=== PATIENT | male | born 1955 | race Caucasian/White ===

== ENCOUNTER 2021-05-22 19:54 | Emergency (ER) | payer MEDICARE, SELFPAY ==
[2021-05-22] VITALS (9 sets, daily range): BP systolic 113–157; BP diastolic 71–81; PULSE 72–81; RESP 12–18; TEMP 38.1; O2SAT 94–99; BMI 30.3
--- NOTE | 2021-05-22 20:18 | DI.RAD.S_ITS ---
PROCEDURE: XR CHEST 1V INDICATIONS: chest pain TECHNIQUE: One view of the chest was acquired. COMPARISON: None. FINDINGS: Surgical changes and devices: None. Lungs and pleura: Mild patchy bilateral airspace opacities are seen. Mildly low lung volumes are seen bilaterally. No pleural effusion or pneumothorax. Mediastinum: Mediastinal contours appear normal. Heart size is borderline. Bones and chest wall: No suspicious bony lesions. Overlying soft tissues appear unremarkable. IMPRESSION: Bilateral patchy airspace opacities may represent a viral or atypical pneumonia such as COVID-19 pneumonia versus less likely mild pulmonary edema. Dictated by: Chai Salas M.D. on 05/22/2021 at 20:30 Approved by: Chai Salas M.D. on 05/22/2021 at 20:31
[2021-05-22] MEDS: SODIUM CHLORIDE 0.9% 1,000 ML 1000 ML IV (20:36)
[2021-05-22] MEDS: ONDANSETRON 4 MG/2 ML INJ (20:36)
[2021-05-22 20:39] LABS: Add Manual Diff / Slide Review NO; Basophils Absolute Auto 0 /uL (0-100); Basophils Percent Auto 0.6 % (0-2); Eosinophils Absolute Auto 0 /uL (0-450); Eosinophils Percent Auto 0.2 % (2-4); Hematocrit 38.6 % (41-53); Hemoglobin 12.6 g/dL (13.5-17.5); Lymphocytes Absolute Auto 700 /uL (1100-4500); Lymphocytes Percent Auto 17.8 % (25-40); Mean Corpuscular HGB Conc 32.7 % (30-36); Mean Corpuscular Hemoglobin 27.9 PG (26-34); Mean Corpuscular Volume 85.4 fL (80-100); Monocytes Absolute Auto 400 /uL (0-900); Monocytes Percent Auto 9.3 % (3-14); Neutrophils Absolute Auto 2800 /uL (1500-7000); Neutrophils Percent Auto 72.1 % (50-75); Platelet Count 142 X10^3/uL (150-400); Red Blood Cell Count 4.52 X10^6/uL (4.5-5.9); Red Cell Distribution Width 15.4 % (11.6-14.8); White Blood Cell Count 3.8 X10^3/uL (4.5-11.0)
[2021-05-22 20:54] LABS: Alanine Aminotransferase 24 IU/L (<50); Albumin 4.3 g/dL (3.5-5.0); Albumin Globulin Ratio 1.4 (1.0-2.8); Alkaline Phosphatase 79 U/L (38-126); Aspartate Aminotransferase 33 IU/L (17-59); BUN Creatinine Ratio 15.6 (6-22); Bilirubin Total 0.7 mg/dL (0.2-1.3); Blood Urea Nitrogen 14 mg/dL (9-20); Calcium 8.7 mg/dL (8.4-10.2); Carbon Dioxide 23 mmol/L (22-32); Chloride 103 mmol/L (98-107); Creatine Kinase 105 U/L (55-170); Estimated Glomerular Filt Rate > 60.0 mL/min (>60); Globulin 3.1 g/dL (1.7-4.1); Glucose 100 mg/dL (80-110); HEMOLYSIS < 15 (0-50); Lipase 63 U/L (23-300); Potassium 3.5 mmol/L (3.4-5.1); Sodium 137 mmol/L (137-145); Total Protein 7.4 g/dL (6.3-8.2)
[2021-05-22 21:00] LABS: COVID19 -Nasal RAPID POSITIVE (Negative)
[2021-05-22 21:05] LABS: Troponin I 0.012 ng/mL (0.01-0.034)
[2021-05-22 21:09] LABS: CKMB % Relative Index 0.6 % (1.5-5.0); Creatine Kinase MB 0.64 ng/mL (<2.37)
[2021-05-23] VITALS: BP 133/62; PULSE 79; RESP 14; O2SAT 99
--- NOTE | 2021-05-23 00:16 | ED.GENADULT ---
HPI - General Adult General Chief complaint: Upper Respiratory Symptoms Stated complaint: covid+ not feeling well Time Seen by Provider: 05/22/21 20:04 Source: patient Mode of arrival: Ambulatory Limitations: no limitations History of Present Illness HPI narrative: 65-year-old gentleman presents on day 10 of COVID symptoms with COVID diagnosis confirmed on 05/20. He has multiple medical problems in this last year has been challenging. In addition to his type 2 diabetes, hypertension, hyperlipidemia and anticoagulation for his paroxysmal atrial fibrillation he had a stroke in June, he has had 2 diabetic foot surgeries with toe and partial forefoot amputations, he has had a colonoscopy with complications and 1 month ago had a Cardiac watchman procedure for his paroxysmal atrial fibrillation. He moved from [place] to [place] 1 month ago. Through all of those medical issues last year his doctors continued to recommend no COVID vaccination for him. Ten days ago he started noting fevers myalgias mild cough tested positive 4 days ago and comes in today with increasing weakness, dyspnea, increasing nausea vomiting and unable to keep any foods down over the last 24 hours. He denies any palpitations but is complaining of some chest pain secondary to the coughing that he has been doing some mild upper abdominal pain secondary to the vomiting. Has not been having any diarrhea he describes no headaches. He has been increasingly weak and progressively more dyspneic particularly with exertion. Today finds that he can barely even walk across the room to get to the bathroom due to his dyspnea. Related Data Home Medications Medication Instructions Recorded Confirmed amlodipine 5 mg tablet 5 mg PO DAILY 05/22/21 05/22/21 atorvastatin 40 mg tablet 40 mg PO DAILY 05/22/21 05/22/21 cyclobenzaprine 10 mg tablet 10 mg PO TID PRN 05/22/21 05/22/21 fluticasone propionate 50 2 spray INTRANASAL DAILY 05/22/21 05/22/21 mcg/actuation nasal spray,suspension insulin glargine 100 unit/mL (3 50 unit SUBCUT QPM 05/22/21 05/22/21 mL) subcutaneous pen (Lantus Solostar U-100 Insulin) metoprolol succinate 50 mg 50 mg PO QPM 05/22/21 05/22/21 tablet,extended release 24 hr nortriptyline 25 mg capsule 25 - 50 mg PO BEDTIME 05/22/21 05/22/21 omeprazole 40 mg capsule,delayed 40 mg PO BID 05/22/21 05/22/21 release potassium chloride 20 mEq 20 meq PO DAILY 05/22/21 05/22/21 tablet,extended release rivaroxaban 20 mg tablet (Xarelto) 20 mg PO DAILY 05/22/21 05/22/21 topiramate 25 mg tablet 25 mg PO BID 05/22/21 05/22/21 venlafaxine 75 mg capsule,extended 75 mg PO BID 05/22/21 05/22/21 release 24 hr Allergies Allergy/AdvReac Type Severity Reaction Status Date / Time No Known Drug Allergies Allergy Verified 05/22/21 20:24 Review of Systems Review of Systems Narrative: Remainder of complete review of systems is otherwise unremarkable except for that included in the HPI. Patient History Medical History (Updated 05/23/21 @ 00:36 by Pam Bower MD) COVID-19 Hyperlipidemia Hypertension Paroxysmal atrial fibrillation Partial nontraumatic amputation of foot Stroke Type 2 diabetes mellitus Social History Smoking Status: Never smoker Smoking Status: Never smoker Substance Use Type: does not use Exam Narrative Exam Narrative: General: Mildly ill-appearing but in no acute distress. Able to give a complete and coherent history. Well-nourished well-developed HEENT: Moist mucous membranes, normal sclera with reactive pupils, Neck: No JVD, supple Respiratory: Lungs with mild scattered wheezing in all lung sherman but no rales no rhonchi. Full and symmetrical air movement Cardiac: Regular rate and rhythm no murmurs no bruits Abdomen: Soft, nontender, good bowel tones, no flank pain Skin: Warm and dry, no rashes Neurologic: Globally weak, Grossly neurologically intact with no obvious asymmetries or abnormalities Extremities: No trauma, amputation sites healing nicely, well perfused Psych: Cooperative, appropriate insight and affect Initial Vital Signs Initial Vital Signs: Vital Signs Temperature 100.6 F H 05/22/21 20:12 Pulse Rate 76 05/22/21 20:12 Respiratory Rate 17 05/22/21 20:12 Blood Pressure 157/81 H 05/22/21 20:12 Pulse Oximetry 97 05/22/21 20:12 Course Orders Ordered: ED Orders 05/22/21 20:18 XR chest 1V Stat EKG-12 Lead Stat 05/22/21 20:30 COVID19 -Nasal swab/Pre-Proc Stat Complete Blood Count AUTO DIFF Stat Comprehensive Metabolic Panel Stat Lipase Stat Troponin & CK Cardiac Panel Stat 05/22/21 23:59 D Dimer Stat Discontinued Medications Dexamethasone (Dexamethasone 10 Mg/Ml Vial) 6 mg IV NOW ONE Stop: 05/23/21 00:26 Last Admin: 05/23/21 00:44 Dose: 6 mg Documented by: CONRAD Sodium Chloride (Normal Saline 0.9%) 1,000 mls @ 1,000 mls/hr IV BOLUS ONE Stop: 05/22/21 21:20 Last Infusion: 05/22/21 22:00 Dose: 0 mls/hr Documented by: Admin: 05/22/21 20:36 Dose: 1,000 mls/hr Documented by: CONRAD Insulin Glargine (Insulin Glargine 100 Unit/Ml 3ml Pen) 40 unit SUBCUT BEDTIME WENDY Last Admin: 05/23/21 00:51 Dose: Not Given Documented by: CONRAD Rivaroxaban (Rivaroxaban 10 Mg Tablet) 20 mg PO NOW ONE Stop: 05/23/21 00:26 Last Admin: 05/23/21 00:50 Dose: 20 mg Documented by: CONRAD Vital Signs Vital signs: Vital Signs - 8 hr 05/22/21 20:12 05/22/21 20:29 05/22/21 20:30 Temperature 100.6 F H Pulse Rate 76 72 74 Respiratory Rate 17 Blood Pressure 157/81 H Pulse Oximetry 97 97 97 05/22/21 21:00 05/22/21 21:30 05/22/21 22:00 Temperature Pulse Rate 75 79 73 Respiratory Rate 12 Blood Pressure Pulse Oximetry 94 96 96 05/22/21 22:30 05/22/21 23:00 05/22/21 23:30 Temperature Pulse Rate 76 81 75 Respiratory Rate 18 18 17 Blood Pressure 135/72 113/71 Pulse Oximetry 95 96 99 05/23/21 00:00 05/23/21 00:30 05/23/21 01:00 Temperature Pulse Rate 79 79 81 Respiratory Rate 14 17 15 Blood Pressure 133/62 133/70 111/55 L Pulse Oximetry 99 98 99 05/23/21 01:30 05/23/21 01:31 Temperature Pulse Rate 91 H 89 Respiratory Rate 18 18 Blood Pressure 173/74 H Pulse Oximetry 96 96 Medical Decision Making Lab Data Result diagrams: 05/22/21 20:30 05/22/21 20:30 Labs: Lab Results 05/22/21 05/22/21 05/22/21 Range/Units 20:30 20:30 20:30 WBC 3.8 L (4.5-11.0) X10^3/uL RBC 4.52 (4.5-5.9) X10^6/uL Hgb 12.6 L (13.5-17.5) g/dL Hct 38.6 L (41-53) % MCV 85.4 (80-100) fL MCH 27.9 (26-34) PG MCHC 32.7 (30-36) % RDW 15.4 H (11.6-14.8) % Plt Count 142 L (150-400) X10^3/uL Neut % (Auto) 72.1 (50-75) % Lymph % (Auto) 17.8 L (25-40) % [place] % (Auto) 9.3 (3-14) % Eos % (Auto) 0.2 L (2-4) % Baso % (Auto) 0.6 (0-2) % Neut # (Auto) 2800 (8576-5548) /uL Lymph # (Auto) 700 L (8956-5773) /uL [place] # (Auto) 400 (0-900) /uL Eos # (Auto) 0 (0-450) /uL Baso # (Auto) 0 (0-100) /uL D-Dimer (<230) ng/mL Sodium 137 (137-145) mmol/L Potassium 3.5 (3.4-5.1) mmol/L Chloride 103 (98-107) mmol/L Carbon Dioxide 23 (22-32) mmol/L BUN 14 (9-20) mg/dL Creatinine 0.90 (0.66-1.25) mg/dL Estimated GFR > 60.0 (>60) mL/min BUN/Creatinine Ratio 15.6 (6-22) Glucose 100 (80-110) mg/dL Calcium 8.7 (8.4-10.2) mg/dL Total Bilirubin 0.7 (0.2-1.3) mg/dL AST 33 (17-59) IU/L ALT 24 (<50) IU/L Alkaline Phosphatase 79 (38-126) U/L Total Creatine Kinase 105 (55-170) U/L CK-MB (CK-2) 0.64 (<2.37) ng/mL CK-MB (CK-2) Rel Index 0.6 L (1.5-5.0) % Troponin I 0.012 (0.01-0.034) ng/mL Total Protein 7.4 (6.3-8.2) g/dL Albumin 4.3 (3.5-5.0) g/dL Globulin 3.1 (1.7-4.1) g/dL Albumin/Globulin Ratio 1.4 (1.0-2.8) Lipase 63 (23-300) U/L SARS-CoV-2 (PCR) Positive H (Negative) 05/22/21 Range/Units 23:59 WBC (4.5-11.0) X10^3/uL RBC (4.5-5.9) X10^6/uL Hgb (13.5-17.5) g/dL Hct (41-53) % MCV (80-100) fL MCH (26-34) PG MCHC (30-36) % RDW (11.6-14.8) % Plt Count (150-400) X10^3/uL Neut % (Auto) (50-75) % Lymph % (Auto) (25-40) % [place] % (Auto) (3-14) % Eos % (Auto) (2-4) % Baso % (Auto) (0-2) % Neut # (Auto) (4888-6003) /uL Lymph # (Auto) (8042-9339) /uL [place] # (Auto) (0-900) /uL Eos # (Auto) (0-450) /uL Baso # (Auto) (0-100) /uL D-Dimer 242 H (<230) ng/mL Sodium (137-145) mmol/L Potassium (3.4-5.1) mmol/L Chloride (98-107) mmol/L Carbon Dioxide (22-32) mmol/L BUN (9-20) mg/dL Creatinine (0.66-1.25) mg/dL Estimated GFR (>60) mL/min BUN/Creatinine Ratio (6-22) Glucose (80-110) mg/dL Calcium (8.4-10.2) mg/dL Total Bilirubin (0.2-1.3) mg/dL AST (17-59) IU/L ALT (<50) IU/L Alkaline Phosphatase (38-126) U/L Total Creatine Kinase (55-170) U/L CK-MB (CK-2) (<2.37) ng/mL CK-MB (CK-2) Rel Index (1.5-5.0) % Troponin I (0.01-0.034) ng/mL Total Protein (6.3-8.2) g/dL Albumin (3.5-5.0) g/dL Globulin (1.7-4.1) g/dL Albumin/Globulin Ratio (1.0-2.8) Lipase (23-300) U/L SARS-CoV-2 (PCR) (Negative) Point of Care Testing Glucose POC 74 Point of care testing: Point of Care Testing Glucose POC 74 Imaging Data Chest x-ray: Radiologist's Impression: FINDINGS:? ? Surgical changes and devices:? None.? ? Lungs and pleura:? Mild patchy bilateral airspace opacities are seen.? Mildly low lung volumes are seen bilaterally.? No pleural effusion or pneumothorax. ? Mediastinum:? Mediastinal contours appear normal.? Heart size is borderline.? ? Bones and chest wall:? No suspicious bony lesions.? Overlying soft tissues appear unremarkable.? ? IMPRESSION:? Bilateral patchy airspace opacities may represent a viral or atypical pneumonia such as COVID-19 pneumonia versus less likely mild pulmonary edema. ? ? Dictated by: Chai Salas M.D. on 05/22/2021 at 20:30 ? ? ECG Data Interpretation: Sinus rhythm at a rate of 86 Left axis deviation No acute ischemic changes MDM Narrative Medical decision making narrative: 65-year-old gentleman with multiple medical issues not vaccinated for COVID on day 10 of symptoms with nausea vomiting diarrhea and progressive exertional dyspnea. Sats when resting and taking slow deep breaths can be as high as 97 however getting out of bed standing up and then back into bed his saturations dropped to 85%. He is much more comfortable on 2 L with decreased tachypnea and tachycardia. Given his multiple medical comorbidities worsening symptoms and now oxygen requirements he will benefit from hospitalization. Because of bed shortage is across [facility] closest inpatient bed available is at [facility] in [place]. Spoke with Dr Mccloud, hospitalist at [facility] who accepts the patient. Findings and concerns are reviewed with patient. Currently pending are a D-dimer however he is anticoagulated on Xarelto. He will be given dexamethasone but will weight to begin remdesivir until he gets to his receiving hospital. At this time he is comfortable on 2 L nasal cannula oxygen and safe for transport to [facility] Discharge Plan Departure Patient Disposition: [facility] Clinical Impression: Respiratory failure with hypoxia, Nausea & vomiting Prescriptions: No Action atorvastatin 40 mg Tablet 40 mg PO DAILY 0RF amlodipine 5 mg Tablet 5 mg PO DAILY 0RF cyclobenzaprine 10 mg Tablet 10 mg PO TID PRN (Reason: back spasm) 0RF venlafaxine 75 mg Capsule,Extended Release 24hr 75 mg PO BID 0RF metoprolol succinate 50 mg Tablet Extended Release 24 Hr 50 mg PO QPM 0RF topiramate 25 mg Tablet 25 mg PO BID 0RF omeprazole 40 mg Capsule,Delayed Release(Dr/Ec) 40 mg PO BID 0RF nortriptyline 25 mg Capsule 25 - 50 mg PO BEDTIME 0RF fluticasone propionate 50 mcg/actuation [place],Suspension 2 spray INTRANASAL DAILY 0RF Rx Instructions: administer into each nostril Lantus Solostar U-100 Insulin 100 unit/mL (3 mL) Insulin Pen 50 unit SUBCUT QPM 0RF Xarelto 20 mg Tablet 20 mg PO DAILY 0RF Rx Instructions: must administer with evening meal potassium chloride 20 mEq Tablet Extended Release 20 meq PO DAILY 0RF
[2021-05-23 00:26] LABS: D Dimer 242 ng/mL (<230)
[2021-05-23 00:30] VITALS: BP 133/70; PULSE 79; RESP 17; O2SAT 98
[2021-05-23] MEDS: DEXAMETHASONE 10 MG/ML VIAL 6 MG IV (00:44)
[2021-05-23] MEDS: RIVAROXABAN 10 MG TABLET 20 MG PO (00:50)
[2021-05-23 01:00] VITALS: BP 111/55; PULSE 81; RESP 15; O2SAT 99
[2021-05-23 01:30] VITALS: PULSE 91; RESP 18; O2SAT 96
[2021-05-23 01:31] VITALS: BP 173/74; PULSE 89; RESP 18; O2SAT 96
== END 2021-05-23 01:45 | disposition short-term general hospital (02) ==
PROVIDERS: Emergency Provider Emergency Medicine
DX: U07.1 COVID-19 (principal); J96.91 Respiratory failure, unspecified with hypoxia; R11.2 Nausea with vomiting, unspecified; E11.9 Type 2 diabetes mellitus without complications; I10 Essential (primary) hypertension; E78.5 Hyperlipidemia, unspecified; I48.0 Paroxysmal atrial fibrillation; Z79.01 Long term (current) use of anticoagulants; Z79.4 Long term (current) use of insulin
CPT/HCPCS: 36415; 71045; 80053; 82550; 82553; 82962; 83690; 84484; 85025; 85379; 87635; 93005; 96361; 96374; 96375; 99284; 99285; C9803; J1100; J2405

== ENCOUNTER 2021-07-15 15:24 | Observation (INO) | payer MEDICARE, SELFPAY ==
[2021-07-15] VITALS (7 sets, daily range): BP systolic 127–180; BP diastolic 58–95; PULSE 67–97; RESP 15–20; TEMP 36.6–36.7; O2SAT 97–98; BMI 30.3
--- NOTE | 2021-07-15 15:36 | DI.RAD.S_ITS ---
PROCEDURE: XR CHEST 2V INDICATIONS: shortness of breath TECHNIQUE: 2 views of the chest were acquired. COMPARISON: [facility], , XR CHEST 1V, 05/22/2021, 20:19. FINDINGS: Surgical changes and devices: None. Lungs and pleura: Lungs are clear. No pleural effusions or pneumothorax. Mediastinum: Mediastinal contours are normal. Heart size is normal. Bones and chest wall: No suspicious bony abnormalities. Soft tissues appear unremarkable. IMPRESSION: No acute cardiopulmonary disease process. Dictated by: Kylie Mulligan MD, PhD on 07/15/2021 at 16:13 Approved by: Kylie Mulligan MD, PhD on 07/15/2021 at 16:29
--- NOTE | 2021-07-15 15:36 | ED_ITS ---
HPI - Allergic Reaction General Chief complaint: Shortness of Breath/Dyspnea Stated complaint: sent by MD for heart issues Time Seen by Provider: 07/15/21 15:32 Source: patient and RN notes reviewed Mode of arrival: Ambulatory Limitations: no limitations History of Present Illness HPI narrative: This is a 65-year-old male who comes emergency department complaint of chest pain that is been going on for 24 hours he states it is intermittent, will have and heaviness in his chest and feels short of breath. It is substernal it does not radiate. He states that sometimes with exertion but sometimes with sitting. He gets sweaty. He actually states he has been feeling short of breath for about 24 hours. [place] a little bit chilled but no fevers. No cold, cough or congestion. No nausea or vomiting. He has felt a little bit lightheaded in for the past couple hours. No syncope. He has had bilateral swelling in his lower extremities for least several days. He has not had this prior. Patient notes that he has medical problems he does not know what they all are he does have diabetic and is on insulin. 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 Had a Watchman placed in [place] on March 01. Patient states he used to see a form building supervisor in your but does not established locally. He saw his primary care [facility] today who told him to come to the ER. He states he was following up his he is about to run out of his medications. No known drug allergies. No tobacco, alcohol or illicit. He states his blood pressures have been high but he does not know the numbers his keeps track of this. She is not present. Related Data Home Medications Medication Instructions Recorded Confirmed amlodipine 5 mg tablet 5 mg PO DAILY 05/22/21 07/15/21 atorvastatin 40 mg tablet 40 mg PO DAILY 05/22/21 07/15/21 cyclobenzaprine 10 mg tablet 10 mg PO TID PRN 05/22/21 07/15/21 insulin glargine 100 unit/mL (3 50 unit SUBCUT QPM 05/22/21 07/15/21 mL) subcutaneous pen (Lantus Solostar U-100 Insulin) metoprolol succinate 50 mg 50 mg PO QPM 05/22/21 07/15/21 tablet,extended release 24 hr nortriptyline 25 mg capsule 25 - 50 mg PO BEDTIME 05/22/21 07/15/21 omeprazole 40 mg capsule,delayed 40 mg PO BID 05/22/21 07/15/21 release potassium chloride 20 mEq 20 meq PO DAILY 05/22/21 07/15/21 tablet,extended release rivaroxaban 20 mg tablet (Xarelto) 20 mg PO DAILY 05/22/21 07/15/21 topiramate 25 mg tablet 25 mg PO BID 05/22/21 07/15/21 venlafaxine 75 mg capsule,extended 75 mg PO BID 05/22/21 07/15/21 release 24 hr Allergies Allergy/AdvReac Type Severity Reaction Status Date / Time No Known Drug Allergies Allergy Verified 07/15/21 15:37 Review of Systems Review of Systems ROS Unobtainable: All systems reviewed & are unremarkable except as noted in HPI and below Patient History Medical History COVID-19 Hyperlipidemia Hypertension Paroxysmal atrial fibrillation Partial nontraumatic amputation of foot Stroke Type 2 diabetes mellitus Surgical History H/O right inguinal hernia repair H/O shoulder surgery Hx of colonoscopy Presence of Watchman left atrial appendage closure device Family History Sister Heart failure Mother Blood clot in vein Father Myocardial infarction Social History household members: spouse and children Smoking Status: Never smoker alcohol intake: never Smoking Status: Never smoker Substance Use Type: does not use Exam Narrative Exam Narrative: GENERAL: Alert and oriented x three, male in mild distress. HEENT: Head normocephalic, atraumatic, EOMI, pupils reactive, face symmetric, moist mucous membranes, no facial droop. NECK: Supple, full range of motion CARDIOVASCULAR: Regular rate and rhythm without murmurs, rubs or gallops. RESPIRATORY: Breath sounds equal bilaterally, no wheezes rales or rhonchi. ABDOMEN: Soft, nontender. Normoactive bowel sounds all 4 quadrants. No guarding or rebound, rigidity, no mass, nondistended. : No CVA tenderness EXTREMITIES: Normal range of motion. Bilateral lower extremity 2+ pitting edema. NEUROLOGICAL: Cranial nerves II through XII grossly intact. Moving all extremities SKIN: Warm, dry, no petechiae, no rashes or lesions. Initial Vital Signs Initial Vital Signs: Vital Signs Temperature 98.1 F 07/15/21 15:37 Pulse Rate 67 07/15/21 15:37 Respiratory Rate 15 07/15/21 15:37 Blood Pressure 180/92 H 07/15/21 15:37 Pulse Oximetry 98 07/15/21 15:37 Scores HEART Score Heart Score history: Moderately Suspicious Heart Score EKG: Non-Specific repolarization disturbance Heart Score Age: > or = 65 years old Heart Score risk factors: > 3 risk factors or hx of atherosclerotic disease Heart Score troponin: < or = to normal limit Heart Score Total: 6 Course Orders Ordered: Acetaminophen (Acetaminophen 325 Mg Tablet) 650 mg PO Q6HR PRN PRN Reason: Fever/Mild Pain (1-3) Amlodipine Besylate (Amlodipine 5 Mg Tablet) 5 mg PO DAILY WENDY Atorvastatin Calcium (Atorvastatin 20 Mg Tablet) 40 mg PO BEDTIME [facility] Last Admin: 07/15/21 22:18 Dose: 40 mg Documented by: MARY Dextrose (Dextrose 50 % In Water 25 Gm/50 Ml Syringe) 25 gm IV PRN PRN PRN Reason: Hypoglycemia Influenza Virus Vaccine (Influenza Hd Vaccine 0.7 Ml Syringe) 0.7 ml IM .ONCE ONE Stop: 07/16/21 08:01 Insulin Glargine (Insulin Glargine 100 Unit/Ml 3ml Pen) 50 unit SUBCUT QPM [facility] Insulin Human Lispro (Insulin Lispro 100 Unit/Ml 3ml Vial) 0 unit SUBCUT ACHS [facility]; Protocol Morphine Sulfate (Morphine 2 Mg/Ml Inj) 2 mg IV Q5MIN PRN PRN Reason: Chest Pain Last Admin: 07/16/21 00:22 Dose: 2 mg Documented by: Admin: 07/15/21 23:50 Dose: 2 mg Documented by: Admin: 07/15/21 23:25 Dose: 2 mg Documented by: Admin: 07/15/21 22:19 Dose: 2 mg Documented by: MARY Morphine Sulfate (Morphine 2 Mg/Ml Inj) 4 mg IV Q4HR PRN PRN Reason: Pain, Moderate (4-6) Last Admin: 07/16/21 01:42 Dose: 4 mg Documented by: MARY Naloxone HCl (Naloxone 0.4 Mg/Ml Vial) 0.2 mg IV Q2MIN PRN PRN Reason: Opiate Reversal Nitroglycerin (Nitroglycerin 0.4 Mg Sl Tab) 0.4 mg SL [id number] PRN PRN Reason: Chest Pain Last Admin: 07/16/21 00:56 Dose: 0.4 mg Documented by: Admin: 07/16/21 00:42 Dose: 0.4 mg Documented by: MARY Ondansetron HCl (Ondansetron 4 Mg/2 Ml Inj) 4 mg IV Q8HR PRN PRN Reason: Nausea And Vomiting Rivaroxaban (Rivaroxaban 10 Mg Tablet) 20 mg PO DAILY [facility] Last Admin: 07/15/21 22:18 Dose: 20 mg Documented by: MARY Topiramate (Topiramate 25 Mg Tablet) 25 mg PO BID [facility] Last Admin: 07/15/21 22:19 Dose: 25 mg Documented by: MARY Venlafaxine HCl (Venlafaxine Er 75 Mg Cap) 75 mg PO BID [facility] Last Admin: 07/15/21 22:18 Dose: 75 mg Documented by: MARY Discontinued Medications Aspirin (Aspirin 81 Mg Chew Tab) 324 mg PO NOW ONE Stop: 07/15/21 17:00 Last Admin: 07/15/21 17:21 Dose: 324 mg Documented by: GOLDY Furosemide (Furosemide 40 Mg/4 Ml Vial) 40 mg IV NOW ONE Stop: 07/15/21 15:56 Last Admin: 07/15/21 16:07 Dose: 40 mg Documented by: INES Magnesium Sulfate (Magnesium Sulfate) 2 gm in 50 mls @ 25 mls/hr IV NOW ONE Stop: 07/16/21 02:44 Last Infusion: 07/16/21 06:43 Dose: 0 mls/hr Documented by: MARY Cosigned by: MADINA Admin: 07/16/21 01:01 Dose: 25 mls/hr Documented by: MARY Cosigned by: MADINA Morphine Sulfate (Morphine 2 Mg/Ml Inj) 2 mg IV Q4HR PRN PRN Reason: Pain, Moderate (4-6) Nitroglycerin (Nitroglycerin 0.4 Mg Sl Tab) 0.4 mg SL [id number] PRN PRN Reason: Chest Pain Last Admin: 07/15/21 18:31 Dose: 0.4 mg Documented by: Admin: 07/15/21 18:26 Dose: 0.4 mg Documented by: Admin: 07/15/21 18:19 Dose: 0.4 mg Documented by: SOL Pantoprazole Sodium (Pantoprazole Dr 40 Mg Tablet) 40 mg PO BIDAC WENDY Pantoprazole Sodium (Pantoprazole Dr 20 Mg Tablet) 10 mg PO 0600 WENDY Potassium Chloride (Potassium Chloride 20 Meq Tab) 40 meq PO NOW ONE Stop: 07/15/21 16:59 Last Admin: 07/15/21 17:21 Dose: 40 meq Documented by: GOLDY Potassium Chloride (Potassium Chloride 20 Meq Tab) 40 meq PO NOW ONE Stop: 07/15/21 21:04 Last Admin: 07/15/21 22:18 Dose: 40 meq Documented by: MARY Consultations Consultation #1: Dr. Pichardo, hospitalist accepts for observation for chest pain. Vital Signs Vital signs: Vital Signs - 8 hr 07/15/21 15:37 07/15/21 18:19 07/15/21 18:26 Temperature 98.1 F Pulse Rate 67 78 81 Respiratory Rate 15 Blood Pressure 180/92 H 167/95 H 136/63 Pulse Oximetry 98 MDM - Allergic Reaction Lab Data Result diagrams: 07/16/21 05:28 07/16/21 05:28 Labs: Lab Results 07/15/21 07/15/21 07/15/21 Range/Units 15:37 15:37 15:37 WBC 7.1 (4.5-11.0) X10^3/uL RBC 4.48 L (4.5-5.9) X10^6/uL Hgb 12.6 L (13.5-17.5) g/dL Hct 38.2 L (41-53) % MCV 85.2 (80-100) fL MCH 28.1 (26-34) PG MCHC 33.0 (30-36) % RDW 16.1 H (11.6-14.8) % Plt Count 236 (150-400) X10^3/uL Neut % (Auto) 68.1 (50-75) % Lymph % (Auto) 19.6 L (25-40) % [place] % (Auto) 9.6 (3-14) % Eos % (Auto) 1.8 L (2-4) % Baso % (Auto) 0.9 (0-2) % Neut # (Auto) 4800 (0068-1026) /uL Lymph # (Auto) 1400 (0698-2469) /uL [place] # (Auto) 700 (0-900) /uL Eos # (Auto) 100 (0-450) /uL Baso # (Auto) 100 (0-100) /uL PT 11.8 (10.1-12.7) SECONDS INR 1.1 (0.9-1.3) APTT (26.4-36.2) SECONDS D-Dimer (<230) ng/mL Sodium 143 (137-145) mmol/L Potassium 3.1 L (3.4-5.1) mmol/L Chloride 104 (98-107) mmol/L Carbon Dioxide 28 (22-32) mmol/L BUN 18 (9-20) mg/dL Creatinine 0.84 (0.66-1.25) mg/dL Estimated GFR > 60.0 (>60) mL/min BUN/Creatinine Ratio 21.4 (6-22) Glucose 92 (80-110) mg/dL Hemoglobin A1c (4.0-6.0) % Lactate (0.7-2.1) mmol/L Calcium 9.2 (8.4-10.2) mg/dL Magnesium (1.6-2.3) mg/dL Total Bilirubin 0.7 (0.2-1.3) mg/dL AST 33 (17-59) IU/L ALT 30 (<50) IU/L Alkaline Phosphatase 74 (38-126) U/L Total Creatine Kinase (55-170) U/L CK-MB (CK-2) (<2.37) ng/mL CK-MB (CK-2) Rel Index (1.5-5.0) % Troponin I (0.01-0.034) ng/mL NT-Pro-B Natriuret Pep 89 (<125) pg/mL Total Protein 7.9 (6.3-8.2) g/dL Albumin 4.9 (3.5-5.0) g/dL Globulin 3.0 (1.7-4.1) g/dL Albumin/Globulin Ratio 1.6 (1.0-2.8) Lipase (23-300) U/L SARS-CoV-2 (PCR) (Negative) 07/15/21 07/15/21 07/15/21 Range/Units 15:37 15:37 15:37 WBC (4.5-11.0) X10^3/uL RBC (4.5-5.9) X10^6/uL Hgb (13.5-17.5) g/dL Hct (41-53) % MCV (80-100) fL MCH (26-34) PG MCHC (30-36) % RDW (11.6-14.8) % Plt Count (150-400) X10^3/uL Neut % (Auto) (50-75) % Lymph % (Auto) (25-40) % [place] % (Auto) (3-14) % Eos % (Auto) (2-4) % Baso % (Auto) (0-2) % Neut # (Auto) (6055-5102) /uL Lymph # (Auto) (2734-4480) /uL [place] # (Auto) (0-900) /uL Eos # (Auto) (0-450) /uL Baso # (Auto) (0-100) /uL PT (10.1-12.7) SECONDS INR (0.9-1.3) APTT (26.4-36.2) SECONDS D-Dimer (<230) ng/mL Sodium (137-145) mmol/L Potassium (3.4-5.1) mmol/L Chloride (98-107) mmol/L Carbon Dioxide (22-32) mmol/L BUN (9-20) mg/dL Creatinine (0.66-1.25) mg/dL Estimated GFR (>60) mL/min BUN/Creatinine Ratio (6-22) Glucose (80-110) mg/dL Hemoglobin A1c (4.0-6.0) % Lactate 0.9 (0.7-2.1) mmol/L Calcium (8.4-10.2) mg/dL Magnesium (1.6-2.3) mg/dL Total Bilirubin (0.2-1.3) mg/dL AST (17-59) IU/L ALT (<50) IU/L Alkaline Phosphatase (38-126) U/L Total Creatine Kinase 155 (55-170) U/L CK-MB (CK-2) 1.60 (<2.37) ng/mL CK-MB (CK-2) Rel Index 1.0 L (1.5-5.0) % Troponin I < 0.012 (0.01-0.034) ng/mL NT-Pro-B Natriuret Pep (<125) pg/mL Total Protein (6.3-8.2) g/dL Albumin (3.5-5.0) g/dL Globulin (1.7-4.1) g/dL Albumin/Globulin Ratio (1.0-2.8) Lipase 59 (23-300) U/L SARS-CoV-2 (PCR) (Negative) 07/15/21 07/15/21 07/15/21 Range/Units 15:37 15:53 16:06 WBC (4.5-11.0) X10^3/uL RBC (4.5-5.9) X10^6/uL Hgb (13.5-17.5) g/dL Hct (41-53) % MCV (80-100) fL MCH (26-34) PG MCHC (30-36) % RDW (11.6-14.8) % Plt Count (150-400) X10^3/uL Neut % (Auto) (50-75) % Lymph % (Auto) (25-40) % [place] % (Auto) (3-14) % Eos % (Auto) (2-4) % Baso % (Auto) (0-2) % Neut # (Auto) (6312-3403) /uL Lymph # (Auto) (5981-6455) /uL [place] # (Auto) (0-900) /uL Eos # (Auto) (0-450) /uL Baso # (Auto) (0-100) /uL PT (10.1-12.7) SECONDS INR (0.9-1.3) APTT 35 (26.4-36.2) SECONDS D-Dimer 226 (<230) ng/mL Sodium (137-145) mmol/L Potassium (3.4-5.1) mmol/L Chloride (98-107) mmol/L Carbon Dioxide (22-32) mmol/L BUN (9-20) mg/dL Creatinine (0.66-1.25) mg/dL Estimated GFR (>60) mL/min BUN/Creatinine Ratio (6-22) Glucose (80-110) mg/dL Hemoglobin A1c 8.3 H (4.0-6.0) % Lactate (0.7-2.1) mmol/L Calcium (8.4-10.2) mg/dL Magnesium (1.6-2.3) mg/dL Total Bilirubin (0.2-1.3) mg/dL AST (17-59) IU/L ALT (<50) IU/L Alkaline Phosphatase (38-126) U/L Total Creatine Kinase (55-170) U/L CK-MB (CK-2) (<2.37) ng/mL CK-MB (CK-2) Rel Index (1.5-5.0) % Troponin I (0.01-0.034) ng/mL NT-Pro-B Natriuret Pep (<125) pg/mL Total Protein (6.3-8.2) g/dL Albumin (3.5-5.0) g/dL Globulin (1.7-4.1) g/dL Albumin/Globulin Ratio (1.0-2.8) Lipase (23-300) U/L SARS-CoV-2 (PCR) Negative (Negative) 07/15/21 07/15/21 Range/Units 17:29 17:29 WBC (4.5-11.0) X10^3/uL RBC (4.5-5.9) X10^6/uL Hgb (13.5-17.5) g/dL Hct (41-53) % MCV (80-100) fL MCH (26-34) PG MCHC (30-36) % RDW (11.6-14.8) % Plt Count (150-400) X10^3/uL Neut % (Auto) (50-75) % Lymph % (Auto) (25-40) % [place] % (Auto) (3-14) % Eos % (Auto) (2-4) % Baso % (Auto) (0-2) % Neut # (Auto) (3782-0218) /uL Lymph # (Auto) (3179-8625) /uL [place] # (Auto) (0-900) /uL Eos # (Auto) (0-450) /uL Baso # (Auto) (0-100) /uL PT (10.1-12.7) SECONDS INR (0.9-1.3) APTT (26.4-36.2) SECONDS D-Dimer (<230) ng/mL Sodium (137-145) mmol/L Potassium (3.4-5.1) mmol/L Chloride (98-107) mmol/L Carbon Dioxide (22-32) mmol/L BUN (9-20) mg/dL Creatinine (0.66-1.25) mg/dL Estimated GFR (>60) mL/min BUN/Creatinine Ratio (6-22) Glucose (80-110) mg/dL Hemoglobin A1c (4.0-6.0) % Lactate (0.7-2.1) mmol/L Calcium (8.4-10.2) mg/dL Magnesium 1.5 L (1.6-2.3) mg/dL Total Bilirubin (0.2-1.3) mg/dL AST (17-59) IU/L ALT (<50) IU/L Alkaline Phosphatase (38-126) U/L Total Creatine Kinase (55-170) U/L CK-MB (CK-2) (<2.37) ng/mL CK-MB (CK-2) Rel Index (1.5-5.0) % Troponin I 0.014 (0.01-0.034) ng/mL NT-Pro-B Natriuret Pep (<125) pg/mL Total Protein (6.3-8.2) g/dL Albumin (3.5-5.0) g/dL Globulin (1.7-4.1) g/dL Albumin/Globulin Ratio (1.0-2.8) Lipase (23-300) U/L SARS-CoV-2 (PCR) (Negative) Imaging Data Chest x-ray: Radiologist's Impression: Close Chest X-Ray (Signed) Kylie Mulligan - 07/15/21 Chest X-Ray (Signed) Chai Salas - 05/22/[address] [address] XRay Report Signed Patient: Edis Bonilla MR#: [id number] : 1955 Acct:[id number] Age/Sex: 65 / M Date of Service: 07/15/21 Loc: ED Accession Number: [id number] ?? Procedure: XR chest 2V Ordering Provider: Nina Win D.O. PROCEDURE:? XR CHEST 2V ? INDICATIONS:? shortness of breath ? TECHNIQUE:? 2 views of the chest were acquired.? ? COMPARISON:? [facility], , XR CHEST 1V, 05/22/2021, 20:19. ? FINDINGS:? ? Surgical changes and devices:? None.? ? Lungs and pleura:? Lungs are clear.? No pleural effusions or pneumothorax.? ? Mediastinum:? Mediastinal contours are normal.? Heart size is normal.? ? Bones and chest wall:? No suspicious bony abnormalities.? Soft tissues appear unremarkable.? ? IMPRESSION:? No acute cardiopulmonary disease process. ? ? Dictated by: Kylie Mulligan MD, PhD on 07/15/2021 at 16:13 ? ? Approved by: Kylie Mulligan MD, PhD on 07/15/2021 at 16:29? ECG Data Attestation: I personally reviewed and interpreted this ECG as follows: Prior ECG tracings: available for review Interpretation: Sinus rhythm rate of 69, UT 158, QRS of 98 QTC 447. LAFB. Nonspecific change. Patient has prior from 05/22/2021 which appears similar. EKG 2. Sinus rhythm with premature atrial complexes. Left axis deviation. Rate of 74 UT 150 QRS of 100 and QTC 474. No acute ST elevation patient's EKG has nonspecific change. [facility] Narrative Medical decision making narrative: This is a 65-year-old male sent to the emergency department for chest pain for the past 24 hours. Patient's initial EKG shows nonspecific change, troponin is negative this was repeated with no acute dynamic changes. Troponin is technically still negative but had a mild increase from 0.012-0.014. Patient had some improvement chest pain with nitro but it is intermittent. His chest x- ray does not show acute changes, he clinically describes fluid overload although his BNP is not elevated, patient's D-dimer was included as he had recent hospitalization at [facility] in May for COVID. This is also negative in my suspicion with hypertension, bradycardia and not requiring any oxygen here in the department is unlikely and CT angio was not performed. Patient does not have any other clear cause for his symptoms. Discussed with hospitalist would like he patient observation for chest pain with plan for stress testing of the following days he has multiple risk factors. Patient is a somewhat poor historian as able to give clear information but appears he is taking Xarelto daily as well as insulin for diabetes, hypertension and dyslipidemia and he notes he had a Watchman placed for atrial fibrillation in January in [facility]. Discharge Plan Departure Patient Disposition: Admitted as Observation Clinical Impression: Chest pain Admit Date/Time: 07/15/21 18:54 Admit Provider: Josie Pichardo
[2021-07-15 15:43] LABS: Add Manual Diff / Slide Review NO; Basophils Absolute Auto 100 /uL (0-100); Basophils Percent Auto 0.9 % (0-2); Eosinophils Absolute Auto 100 /uL (0-450); Eosinophils Percent Auto 1.8 % (2-4); Hematocrit 38.2 % (41-53); Hemoglobin 12.6 g/dL (13.5-17.5); Lymphocytes Absolute Auto 1400 /uL (1100-4500); Lymphocytes Percent Auto 19.6 % (25-40); Mean Corpuscular Hemoglobin 28.1 PG (26-34); Mean Corpuscular Volume 85.2 fL (80-100); Monocytes Absolute Auto 700 /uL (0-900); Monocytes Percent Auto 9.6 % (3-14); Neutrophils Absolute Auto 4800 /uL (1500-7000); Neutrophils Percent Auto 68.1 % (50-75); Platelet Count 236 X10^3/uL (150-400); Red Blood Cell Count 4.48 X10^6/uL (4.5-5.9); Red Cell Distribution Width 16.1 % (11.6-14.8); White Blood Cell Count 7.1 X10^3/uL (4.5-11.0)
[2021-07-15 15:50] LABS: INR 1.1 (0.9-1.3); Prothrombin Time 11.8 SECONDS (10.1-12.7)
[2021-07-15 15:54] LABS: Lactate (Lactic Acid) 0.9 mmol/L (0.7-2.1)
[2021-07-15 15:55] LABS: Alanine Aminotransferase 30 IU/L (<50); Albumin 4.9 g/dL (3.5-5.0); Albumin Globulin Ratio 1.6 (1.0-2.8); Alkaline Phosphatase 74 U/L (38-126); Aspartate Aminotransferase 33 IU/L (17-59); BUN Creatinine Ratio 21.4 (6-22); Bilirubin Total 0.7 mg/dL (0.2-1.3); Blood Urea Nitrogen 18 mg/dL (9-20); Calcium 9.2 mg/dL (8.4-10.2); Carbon Dioxide 28 mmol/L (22-32); Chloride 104 mmol/L (98-107); Estimated Glomerular Filt Rate > 60.0 mL/min (>60); Glucose 92 mg/dL (80-110); HEMOLYSIS < 15 (0-50); Potassium 3.1 mmol/L (3.4-5.1); Sodium 143 mmol/L (137-145); Total Protein 7.9 g/dL (6.3-8.2)
[2021-07-15 16:04] LABS: NT-proBNP (BNP-Adult 18+) 89 pg/mL (<125)
[2021-07-15] MEDS: FUROSEMIDE 40 MG/4 ML VIAL IV (16:07)
[2021-07-15 16:11] LABS: D Dimer 226 ng/mL (<230); PTT Partial Thromboplastin Tim 35 SECONDS (26.4-36.2)
[2021-07-15 16:23] LABS: Creatine Kinase 155 U/L (55-170)
[2021-07-15 16:36] LABS: Troponin I < 0.012 ng/mL (0.01-0.034)
[2021-07-15 16:50] LABS: Lipase 59 U/L (23-300)
[2021-07-15] MEDS: ASPIRIN 81 MG CHEW TAB 324 MG PO (17:21)
[2021-07-15] MEDS: POTASSIUM CHLORIDE 20 MEQ TAB 40 MEQ PO ×2 (17:21→22:18)
[2021-07-15 17:28] LABS: COVID19 -Nasal RAPID Negative (Negative)
[2021-07-15 18:03] LABS: Troponin I 0.014 ng/mL (0.01-0.034)
[2021-07-15] MEDS: NITROGLYCERIN 0.4 MG SL TAB SL ×3 (18:19→18:31)
--- NOTE | 2021-07-15 18:34 | PC.NURSE ---
Pt initially told me his pain was a 5/10. Then he told me just prior to giving him the first dose of ntg that it was probably a 6/10. Pt received 3 doses sl ntg,pain went from 6/10 to a 4/10,he is feeling better. bp 127/58 HR 86.
--- NOTE | 2021-07-15 20:59 | P.HP_ITS ---
History of Present Illness History of Present Illness Date Patient Seen: 07/15/21 Time Patient Seen: 20:59 Chief complaint: sent by MD for heart issues Narrative: Edis Bonilla is a 65 y.o. male with a recent history of Watchman placement, anticoagulated on Xarelto, hypertension, hyperlipidemia, atrial fibrillation currently anticoagulated with Xarelto and placement of a Watchman, COVID-19 diagnosed in May now resolved, diabetes type 2, and multiple orthopedic surgeries done in 2020 prior to relocating to this area from [facility], was seen at [facility]'s office with complaints of chest pain that started about 24 hours ago. He states that she sent her over to the emergency department because of his blood pressure. He had sensations of gas pains that were is worse overnight and then he went to his new PCP. Patient does endorse h aving significant cramping of his left leg and foot as well as his hand, he did have arms sweats and chills, shortness of breath particularly worse with walking 4 mi yesterday, he denies nausea and vomiting, he does say that he was not urinating until they gave him Lasix and then he urinated about 2 urine all bottles full of urine and feels that the swelling that he had yesterday has gone down significantly in his legs. He has had partial amputations of both feet and stated that both his feet as well as his lower legs were quite swollen. He denies any diarrhea he states that his stool is very firm which is normal for him. He also complains of abdominal cramping on the right side. Patient states he had COVID-19 in May and was transferred to [facility]. The he was not vaccinated and still has not been vaccinated as he was advised that he needed to wait a couple months before getting the vaccine. In the emergency department they requested that he be admitted for further evaluation of chest pain. Chest x-ray was within normal limits. He is afebrile with a temp of 98.1?, blood pressure 127/58, heart rate 84, respiratory rate 15, oxygen saturation 98% on room air he weighs 104 kg with a BMI of 30.3. Of concern was a slightly rising troponin, the 1st two being 0.012 and the 3rd troponin being 0.014. He is mildly anemic with a hemoglobin and hematocrit at 12.6 and 38.2, respectively. Potassium was 3.1. Patient History Medical History COVID-19 Hyperlipidemia Hypertension Paroxysmal atrial fibrillation Partial nontraumatic amputation of foot Stroke Type 2 diabetes mellitus Surgical History H/O right inguinal hernia repair H/O shoulder surgery Hx of colonoscopy Presence of Watchman left atrial appendage closure device Family & Social History Family History Sister Heart failure Mother Blood clot in vein Father Myocardial infarction Social History: household members spouse,children Prior Living Arrangements House Safety & Behavioral: Feels Safe in Current Yes Environment Been Physically Hurt or No Threatened By a Person Suicidal Ideation Description None Suicide Plan Description No Plan Tobacco & Substance use: Smoking Status Never smoker alcohol intake never Substance Use Type does not use Meds Home Medications and Allergies Home Medications Medication Instructions Recorded Confirmed Type amlodipine 5 mg tablet 5 mg PO DAILY 05/22/21 07/15/21 History atorvastatin 40 mg tablet 40 mg PO DAILY 05/22/21 07/15/21 History cyclobenzaprine 10 mg tablet 10 mg PO TID PRN 05/22/21 07/15/21 History insulin glargine 100 unit/mL (3 50 unit SUBCUT QPM 05/22/21 07/15/21 History mL) subcutaneous pen (Lantus Solostar U-100 Insulin) metoprolol succinate 50 mg 50 mg PO QPM 05/22/21 07/15/21 History tablet,extended release 24 hr nortriptyline 25 mg capsule 25 - 50 mg PO BEDTIME 05/22/21 07/15/21 History omeprazole 40 mg capsule,delayed 40 mg PO BID 05/22/21 07/15/21 History release potassium chloride 20 mEq 20 meq PO DAILY 05/22/21 07/15/21 History tablet,extended release rivaroxaban 20 mg tablet (Xarelto) 20 mg PO DAILY 05/22/21 07/15/21 History topiramate 25 mg tablet 25 mg PO BID 05/22/21 07/15/21 History venlafaxine 75 mg capsule,extended 75 mg PO BID 05/22/21 07/15/21 History release 24 hr Allergies Allergy/AdvReac Type Severity Reaction Status Date / Time No Known Drug Allergies Allergy Verified 07/15/21 15:37 Review of Systems Review of Systems ROS: Yes All systems reviewed with the patient and are negative except as otherwise documented Exam Vital Signs (past 8 hours): - 07/15/21 15:37 07/15/21 18:19 07/15/21 18:26 Temperature 98.1 F Pulse Rate 67 78 81 Respiratory Rate 15 Blood Pressure 180/92 H 167/95 H 136/63 Pulse Oximetry 98 07/15/21 18:31 Temperature Pulse Rate 84 Respiratory Rate Blood Pressure 127/58 L Pulse Oximetry Oxygen Delivery Method Room Air Narrative Exam Narrative: Gen: Alert, oriented, well-developed 65 y.o. male, NAD HEENT: normocephalic, atraumatic, conjunctiva clear, sclera non-icteric, oral mucosa pink and moist Neck: supple, full ROM, no JVD, trachea is midline Resp: Lungs CTA, non-labored breathing CV: RRR, no murmur or rubs Abd: soft, non-tender, normoactive BTs Skin: no lesions or rashes, dry and intact Neuro: Alert and oriented X 4 w/no focal deficits. Speech clear and coherent. Extremities: Bilateral above the toe amputations, moves all 4 extremities, is ambulatory, has calf tenderness in left leg Psyche: normal mood and affect. Objective Labs Result Diagrams: 07/15/21 15:37 07/15/21 15:37 Labs: Laboratory Results - last 24 hr 07/15/21 07/15/21 07/15/21 15:37 15:37 15:37 WBC 7.1 RBC 4.48 L Hgb 12.6 L Hct 38.2 L MCV 85.2 MCH 28.1 MCHC 33.0 RDW 16.1 H Plt Count 236 Neut % (Auto) 68.1 Lymph % (Auto) 19.6 L [place] % (Auto) 9.6 Eos % (Auto) 1.8 L Baso % (Auto) 0.9 Neut # (Auto) 4800 Lymph # (Auto) 1400 [place] # (Auto) 700 Eos # (Auto) 100 Baso # (Auto) 100 PT 11.8 INR 1.1 APTT D-Dimer Sodium 143 Potassium 3.1 L Chloride 104 Carbon Dioxide 28 BUN 18 Creatinine 0.84 Estimated GFR > 60.0 BUN/Creatinine Ratio 21.4 Glucose 92 Lactate Calcium 9.2 Total Bilirubin 0.7 AST 33 ALT 30 Alkaline Phosphatase 74 Total Creatine Kinase CK-MB (CK-2) CK-MB (CK-2) Rel Index Troponin I NT-Pro-B Natriuret Pep 89 Total Protein 7.9 Albumin 4.9 Globulin 3.0 Albumin/Globulin Ratio 1.6 Lipase SARS-CoV-2 (PCR) 07/15/21 07/15/21 07/15/21 15:37 15:37 15:37 WBC RBC Hgb Hct MCV MCH MCHC RDW Plt Count Neut % (Auto) Lymph % (Auto) [place] % (Auto) Eos % (Auto) Baso % (Auto) Neut # (Auto) Lymph # (Auto) [place] # (Auto) Eos # (Auto) Baso # (Auto) PT INR APTT D-Dimer Sodium Potassium Chloride Carbon Dioxide BUN Creatinine Estimated GFR BUN/Creatinine Ratio Glucose Lactate 0.9 Calcium Total Bilirubin AST ALT Alkaline Phosphatase Total Creatine Kinase 155 CK-MB (CK-2) 1.60 CK-MB (CK-2) Rel Index 1.0 L Troponin I < 0.012 NT-Pro-B Natriuret Pep Total Protein Albumin Globulin Albumin/Globulin Ratio Lipase 59 SARS-CoV-2 (PCR) 07/15/21 07/15/21 07/15/21 15:53 16:06 17:29 WBC RBC Hgb Hct MCV MCH MCHC RDW Plt Count Neut % (Auto) Lymph % (Auto) [place] % (Auto) Eos % (Auto) Baso % (Auto) Neut # (Auto) Lymph # (Auto) [place] # (Auto) Eos # (Auto) Baso # (Auto) PT INR APTT 35 D-Dimer 226 Sodium Potassium Chloride Carbon Dioxide BUN Creatinine Estimated GFR BUN/Creatinine Ratio Glucose Lactate Calcium Total Bilirubin AST ALT Alkaline Phosphatase Total Creatine Kinase CK-MB (CK-2) CK-MB (CK-2) Rel Index Troponin I 0.014 NT-Pro-B Natriuret Pep Total Protein Albumin Globulin Albumin/Globulin Ratio Lipase SARS-CoV-2 (PCR) Negative Assessment & Plan Assessment & Plan narrative: Edis Bonilla is a 65-year-old male with a number of high risk cardiac conditions who presents today for chest pain and will be further evaluated. 1. Chest pain * Chemical stress test * Complete echo * Holding metoprolol until after stress test, then resume * Home dose of amlodipine for bp * Nitro and low dose morphine for pain 2. Atrial fibrillation w/Watchman device * Continue Xarelto 3. Hypomagnemesia, present on admission * 2 grams IV mag X 1 and recheck in the am 3. Diabetes type 2 sub optimally controlled with hemoglobin A1c of 8.3 * Lantus 50 units daily * Intermediate dose correctional scale insulin * A1c is 8.3 4. HLD * Continue atorvastatin * Lipid panel in am 5. Family history of clots * D-dimer was negative on admission * Repeat if continues to have calf pain or have doppler'd VTE Prophylaxis: Wells risk score []Enoxaparin 40 mg subQ once daily X Bilateral SCDs [X] Patient is currently anticoagulated on Xarelto. Patient is placed into observation as his stay is not expected to exceed 2 midnights. FEN: IV fluids: saline lock, diet: carb control diet, NPO per stress test protocol, labs: CBC, C/BMP, liver enzymes, Mag, Consultants none Dispo: probable discharge to home Code status: Full Code as discussed with the patient who identifies his , Lizzy as his surrogate and POA. [X] I have utilized all available immediate resources to obtain, update, or review of the patient's current medications COVID-19 COVID-19 status: Negative Result date/Date tested (Pos, Neg/Pending): 07/15/21 Time Spent With Patient Critical Care time: I spent a total of [] minutes of critical care time on this patient's care today; this time is exclusive of procedural time. Scores Wells' Criteria for PE Clinical signs and symptoms of DVT: Yes PE is #1 Dx or equally likely: No Heart rate > 100: No Immobilization at least 3 days or surg in previous 4 weeks: No History of PE or DVT: No Hemoptysis: No Malignancy w/Treatment within 6 months or palliative: No Wells' PE Score total: 3 Quality VTE Deep Vein Thrombosis/Pulmonary Embolism Present on Admission: No MIPS - Admit I confirm the patient?s Advance Care Plan is present, Code status is documented, Surrogate decision maker is in patient?s record [If Yes, STOP here]: Yes MIPS - DC The patient has current or prior documentation of left ventricular ejection fraction (LVEF) less than 40%, or moderate or severely depressed left ventricular systolic function.: No B. The patient was prescribed or already taking a beta-missy. [If Yes to Both A & B, STOP here]: Yes
--- NOTE | 2021-07-15 21:16 | DI.ECHO.S_ITS ---
[facility] +---------+ : : [address] : : : : [id number] : : : : Phone: [phone]+ Echocardiogram Report + + :Name: BRANDO AGUILAR Study Date: 07/16/2021 Height: 73 in : :[facility] ReadingLocation: Weight: 230 lb : : Gender: Male BSA: 2.3 m2 : :: 1955 Age: 65 yrs BP: 136/72 mmHg: :Reason For Study: Chest pain : :Ordering Physician: WEI, : :BINDU Performed By: Dedrick Villareal : :Referring: BINDU CARVAJAL : + + Interpretation Summary Normal sinus rhythm. Normal LV size, wall thickness, wall motion and LV systolic function. EF is 55-60%. Borderline LA enlargement; mild-moderate RA enlargement. No significant valvular abnormalities. No prior study available for comparison. Procedure: A two-dimensional transthoracic echocardiogram with color flow and Doppler was performed. The study quality was technically adequate. There is no prior echocardiogram noted for this patient. The subcostal views were not obtained due to no acoustic window and patient could not tolerate. The patient was in normal sinus rhythm during the exam. Left Ventricle: The left ventricle is normal in size and wall thickness. The ejection fraction is estimated to be 55-60%. Right Ventricle: The right ventricle is normal in size and function. Atria: Borderline left atrial enlargement. The right atrium is mild to moderately dilated. There is no Doppler evidence for an interatrial shunt. Mitral Valve: The mitral valve leaflets appear borderline thickened, but open well. There is trace mitral regurgitation. Aortic Valve: The aortic valve is trileaflet. The aortic valve opens well. There is trace aortic regurgitation. Tricuspid Valve: The tricuspid valve is normal. There is trace tricuspid regurgitation. Pulmonary artery pressures cannot be estimated because of the lack of a measurable TR jet velocity. Pulmonic Valve: The pulmonic valve leaflets are thin and pliable; valve motion is normal. There is mild pulmonic regurgitation. Great Vessels: The aortic root is normal size. The ascending aorta is at the upper limits of normal in size. The aortic arch is at the upper limits of normal in size. The inferior vena cava was not visualized. Pericardium/ Pleura There is an anterior echo-free space consistent with a fat pad. There is a trace loculated pericardial effusion. There is no pleural effusion. MMode/2D Measurements & Calculations LVIDd: 5.0 cm LVOT diam: 2.8 cm LVIDs: 3.8 cm Ao root diam: 3.4 cm FS: 22.8 % asc Aorta Diam: 3.6 cm IVSd: 0.99 cm Ao Arch Diam (Prox Trans): 3.4 cm LVPWd: 1.0 cm LV ramirez. diameter/BSA (cm/m^2): 2.2 LV sys. diameter/BSA (cm/m^2): 1.7 LA A2 area: 29.3 cm2 RA long axis: 6.0 cm LA A4 area: 25.1 cm2 RA area: 23.0 cm2 LA length (vol): 7.4 cm RA vol: 74.9 ml LA vol: 84.9 ml RA : 32.8 ml/m2 LA vol index: 37.2 ml/m2 TAPSE: 2.2 cm Doppler Measurements & Calculations Ao V2 max: 134.6 cm/sec LVOT Max Phill: 105.7 cm/sec Ao V2 mean: 111.1 cm/sec LV V1 max P.5 mmHg Ao max P.2 mmHg LV V1 VTI: 25.2 cm Ao mean P.1 mmHg DELILAH(I,D): 4.8 cm2 Ao V2 VTI: 31.4 cm DELILAH(V,D): 4.7 cm2 sev ratio: 0.80 DELILAH indexed to BSA (cm^2/m^2): 2.1 MV E max phill: 85.3 cm/sec PA V2 max: 71.9 cm/sec MV A max phill: 68.4 cm/sec PA V2 mean: 60.8 cm/sec MV E/A: 1.2 PA mean P.5 mmHg Med Peak E' Phill: 5.8 cm/sec PA pr(Accel): 31.0 mmHg E/E' med: 14.7 Lat Peak E' Phill: 8.3 cm/sec E/E' lat: 10.3 E/e' average: 12.5 MV dec time: 0.25 sec SV(LVOT): 150.3 ml Electronically signed by: Katiuska Dietrich M.D. on Reading Physician:07/16/2021 05:58 PM
[2021-07-15 22:11] LABS: Magnesium 1.5 mg/dL (1.6-2.3)
[2021-07-15] MEDS: VENLAFAXINE ER 75 MG CAP PO (22:18)
[2021-07-15] MEDS: ATORVASTATIN 20 MG TABLET 40 MG PO (22:18)
[2021-07-15] MEDS: RIVAROXABAN 10 MG TABLET 20 MG PO (22:18)
[2021-07-15] MEDS: MORPHINE 2 MG/ML INJ IV ×3 (22:19→23:50)
[2021-07-15] MEDS: TOPIRAMATE 25 MG TABLET PO (22:19)
[2021-07-15 22:26] LABS: Troponin I 0.013 ng/mL (0.01-0.034)
[2021-07-15 23:14] LABS: Hemoglobin A1C% w Est Avg Glu 8.3 % (4.0-6.0)
[2021-07-16] VITALS (8 sets, daily range): BP systolic 123–167; BP diastolic 85–108; PULSE 67–97; RESP 18–20; TEMP 36.4–37.1; O2SAT 96–98
[2021-07-16] MEDS: MORPHINE 2 MG/ML INJ IV (00:22)
[2021-07-16] MEDS: NITROGLYCERIN 0.4 MG SL TAB SL ×2 (00:42→00:56)
[2021-07-16] MEDS: MAGNESIUM SULFATE 2 GM/50 ML PIGGYBACK IV (01:01)
[2021-07-16] MEDS: MORPHINE 2 MG/ML INJ 4 MG IV (01:42)
[2021-07-16 06:00] LABS: Add Manual Diff / Slide Review NO; Basophils Absolute Auto 100 /uL (0-100); Basophils Percent Auto 1.2 % (0-2); Eosinophils Absolute Auto 200 /uL (0-450); Eosinophils Percent Auto 3.6 % (2-4); Hematocrit 36.1 % (41-53); Hemoglobin 11.9 g/dL (13.5-17.5); Lymphocytes Absolute Auto 1100 /uL (1100-4500); Lymphocytes Percent Auto 20.7 % (25-40); Mean Corpuscular HGB Conc 33.1 % (30-36); Mean Corpuscular Volume 84.7 fL (80-100); Monocytes Absolute Auto 700 /uL (0-900); Monocytes Percent Auto 12.9 % (3-14); Neutrophils Absolute Auto 3300 /uL (1500-7000); Neutrophils Percent Auto 61.6 % (50-75); Platelet Count 206 X10^3/uL (150-400); Red Blood Cell Count 4.26 X10^6/uL (4.5-5.9); Red Cell Distribution Width 16.7 % (11.6-14.8); White Blood Cell Count 5.3 X10^3/uL (4.5-11.0)
[2021-07-16 06:11] LABS: Alanine Aminotransferase 27 IU/L (<50); Albumin 4.3 g/dL (3.5-5.0); Albumin Globulin Ratio 1.7 (1.0-2.8); Alkaline Phosphatase 66 U/L (38-126); Aspartate Aminotransferase 31 IU/L (17-59); BUN Creatinine Ratio 23.9 (6-22); Bilirubin Total 0.6 mg/dL (0.2-1.3); Bilirubin Unconjugated 0.7 mg/dL (0.0-1.1); Blood Urea Nitrogen 21 mg/dL (9-20); Calcium 9.2 mg/dL (8.4-10.2); Carbon Dioxide 28 mmol/L (22-32); Chloride 106 mmol/L (98-107); Cholesterol 148 mg/dL (140-199); Estimated Glomerular Filt Rate > 60.0 mL/min (>60); Globulin 2.5 g/dL (1.7-4.1); Glucose 126 mg/dL (80-110); HDL Cholesterol 49 mg/dL (40-60); HEMOLYSIS < 15 (0-50); LDL Cholesterol Calculated 76 mg/dL (<100); Magnesium 2.2 mg/dL (1.6-2.3); Potassium 3.7 mmol/L (3.4-5.1); Sodium 142 mmol/L (137-145); Total Protein 6.8 g/dL (6.3-8.2); Triglycerides 113 mg/dL (35-150)
[2021-07-16 06:17] LABS: Troponin I 0.012 ng/mL (0.01-0.034)
[2021-07-16 06:36] LABS: Thyroid Stimulating Hormone 1.12 uIU/mL (0.47-4.68)
[2021-07-16] MEDS: TOPIRAMATE 25 MG TABLET PO (10:41)
[2021-07-16] MEDS: RIVAROXABAN 10 MG TABLET 20 MG PO (10:41)
[2021-07-16] MEDS: AMLODIPINE 5 MG TABLET PO (10:41)
[2021-07-16] MEDS: ACETAMINOPHEN 325 MG TABLET 650 MG PO (10:41)
[2021-07-16] MEDS: VENLAFAXINE ER 75 MG CAP PO (10:42)
--- NOTE | 2021-07-16 13:28 | PM.DS.1 ---
History of Present Illness History of Present Illness Date Patient Seen: 07/16/21 Time Patient Seen: 13:29 Chief complaint: sent by MD for heart issues Narrative: Edis Bonilla is a 65 y.o. male with a recent history of Watchman placement, anticoagulated on Xarelto, hypertension, hyperlipidemia, atrial fibrillation currently anticoagulated with Xarelto and placement of a Watchman, COVID-19 diagnosed in May now resolved, diabetes type 2, and multiple orthopedic surgeries done in 2020 prior to relocating to this area from [facility], was seen at [facility] office with complaints of chest pain that started about 24 hours ago.? He states that she sent her over to the emergency department because of his blood pressure.? He had sensations of gas pains that were is worse overnight and then he went to his new PCP.? Patient does endorse having significant cramping of his left leg and foot as well as his hand, he did have arms sweats and chills, shortness of breath particularly worse with walking 4 mi yesterday, he denies nausea and vomiting, he does say that he was not urinating until they gave him Lasix and then he urinated about 2 urine all bottles full of urine and feels that the swelling that he had yesterday has gone down significantly in his legs.? He has had partial amputations of both feet and stated that both his feet as well as his lower legs were quite swollen.? He denies any diarrhea he states that his stool is very firm which is normal for him.? He also complains of abdominal cramping on the right side.? Patient states he had COVID-19 in May and was transferred to [facility].? The he was not vaccinated and still has not been vaccinated as he was advised that he needed to wait a couple months before getting the vaccine. In the emergency department they requested that he be admitted for further evaluation of chest pain.? Chest x-ray was within normal limits.? He is afebrile with a temp of 98.1?, blood pressure 127/58, heart rate 84, respiratory rate 15, oxygen saturation 98% on room air he weighs 104 kg with a BMI of 30.3. Of concern was a slightly rising troponin, the 1st two being 0.012 and the 3rd troponin being 0.014.? He is mildly anemic with a hemoglobin and hematocrit at 12.6 and 38.2, respectively.? Potassium was 3.1. Discharge Providers Provider Date of admission: 07/15/21 18:54 Discharge Date: 07/16/21 Primary care physician: Kelsey Montoya PA-C Discharge provider: Josie Pichardo MD Summary Hospital Course Discharge Diagnosis: 1. Chest pain likely noncardiac 2. Hypertensive urgency 3. Hyperlipidemia 4. Type 2 diabetes 5. GERD 6. History of atrial fibrillation, status post Watchman device, now still on Xarelto Hospital Course: Patient was admitted to the hospital for evaluation of chest pain. He was noted to be significantly hypertensive. He was diaphoretic as well. The patient was diuresed in the Emergency Department, and admitted to the hospital. Serial cardiac enzymes were negative. The patient underwent a stress test today which was negative for any evidence of ischemia. Ejection fraction was 70-75%. Patient was in sinus rhythm. We discussed stress, as well as, Well as blood pressure management being important, I will prescribe medications were the patient at discharge, and he will follow-up with his primary care provider for further evaluation. Status at Discharge Cognitive/behavioral status at discharge: oriented Functional status at discharge: independent ambulation Overall status at discharge: patient is back to baseline Exam Vital Signs (past 8 hours): - 07/16/21 05:45 07/16/21 07:11 07/16/21 08:47 Temperature 97.6 F 98.3 F Pulse Rate 76 67 Respiratory Rate 18 18 Blood Pressure 141/91 H 161/94 H Pulse Oximetry 96 96 98 07/16/21 11:10 Temperature 97.9 F Pulse Rate 70 Respiratory Rate 18 Blood Pressure 161/99 H Pulse Oximetry 97 Oxygen Delivery Method Nasal Cannula Oxygen Flow Rate 0 Narrative Exam Narrative: Pleasant male resting comfortably in no obvious distress Chest Other: Lungs clear to auscultation Cardio Other: Cardiac exam: Regular rate and rhythm normal S1-S2 with a 2/6 systolic ejection murmur GI Other: Abdomen: Soft and nontender Extrem Other: Extremity left forefoot amputation, 1+ edema Objective Labs Result Diagrams: 07/16/21 05:28 07/16/21 05:28 Labs: Laboratory Results - last 24 hr 07/15/21 07/15/21 07/15/21 15:37 15:37 15:37 WBC 7.1 RBC 4.48 L Hgb 12.6 L Hct 38.2 L MCV 85.2 MCH 28.1 MCHC 33.0 RDW 16.1 H Plt Count 236 Neut % (Auto) 68.1 Lymph % (Auto) 19.6 L [place] % (Auto) 9.6 Eos % (Auto) 1.8 L Baso % (Auto) 0.9 Neut # (Auto) 4800 Lymph # (Auto) 1400 [place] # (Auto) 700 Eos # (Auto) 100 Baso # (Auto) 100 PT 11.8 INR 1.1 APTT D-Dimer Sodium 143 Potassium 3.1 L Chloride 104 Carbon Dioxide 28 BUN 18 Creatinine 0.84 Estimated GFR > 60.0 BUN/Creatinine Ratio 21.4 Glucose 92 Hemoglobin A1c Lactate Calcium 9.2 Magnesium Total Bilirubin 0.7 Conjugated Bilirubin Unconjugated Bilirubin AST 33 ALT 30 Alkaline Phosphatase 74 Total Creatine Kinase CK-MB (CK-2) CK-MB (CK-2) Rel Index Troponin I NT-Pro-B Natriuret Pep 89 Total Protein 7.9 Albumin 4.9 Globulin 3.0 Albumin/Globulin Ratio 1.6 Triglycerides Cholesterol LDL Cholesterol, Calc HDL Cholesterol Lipase TSH SARS-CoV-2 (PCR) 07/15/21 07/15/21 07/15/21 15:37 15:37 15:37 WBC RBC Hgb Hct MCV MCH MCHC RDW Plt Count Neut % (Auto) Lymph % (Auto) [place] % (Auto) Eos % (Auto) Baso % (Auto) Neut # (Auto) Lymph # (Auto) [place] # (Auto) Eos # (Auto) Baso # (Auto) PT INR APTT D-Dimer Sodium Potassium Chloride Carbon Dioxide BUN Creatinine Estimated GFR BUN/Creatinine Ratio Glucose Hemoglobin A1c Lactate 0.9 Calcium Magnesium Total Bilirubin Conjugated Bilirubin Unconjugated Bilirubin AST ALT Alkaline Phosphatase Total Creatine Kinase 155 CK-MB (CK-2) 1.60 CK-MB (CK-2) Rel Index 1.0 L Troponin I < 0.012 NT-Pro-B Natriuret Pep Total Protein Albumin Globulin Albumin/Globulin Ratio Triglycerides Cholesterol LDL Cholesterol, Calc HDL Cholesterol Lipase 59 TSH SARS-CoV-2 (PCR) 07/15/21 07/15/21 07/15/21 15:37 15:53 16:06 WBC RBC Hgb Hct MCV MCH MCHC RDW Plt Count Neut % (Auto) Lymph % (Auto) [place] % (Auto) Eos % (Auto) Baso % (Auto) Neut # (Auto) Lymph # (Auto) [place] # (Auto) Eos # (Auto) Baso # (Auto) PT INR APTT 35 D-Dimer 226 Sodium Potassium Chloride Carbon Dioxide BUN Creatinine Estimated GFR BUN/Creatinine Ratio Glucose Hemoglobin A1c 8.3 H Lactate Calcium Magnesium Total Bilirubin Conjugated Bilirubin Unconjugated Bilirubin AST ALT Alkaline Phosphatase Total Creatine Kinase CK-MB (CK-2) CK-MB (CK-2) Rel Index Troponin I NT-Pro-B Natriuret Pep Total Protein Albumin Globulin Albumin/Globulin Ratio Triglycerides Cholesterol LDL Cholesterol, Calc HDL Cholesterol Lipase TSH SARS-CoV-2 (PCR) Negative 07/15/21 07/15/21 07/15/21 17:29 17:29 21:54 WBC RBC Hgb Hct MCV MCH MCHC RDW Plt Count Neut % (Auto) Lymph % (Auto) [place] % (Auto) Eos % (Auto) Baso % (Auto) Neut # (Auto) Lymph # (Auto) [place] # (Auto) Eos # (Auto) Baso # (Auto) PT INR APTT D-Dimer Sodium Potassium Chloride Carbon Dioxide BUN Creatinine Estimated GFR BUN/Creatinine Ratio Glucose Hemoglobin A1c Lactate Calcium Magnesium 1.5 L Total Bilirubin Conjugated Bilirubin Unconjugated Bilirubin AST ALT Alkaline Phosphatase Total Creatine Kinase CK-MB (CK-2) CK-MB (CK-2) Rel Index Troponin I 0.014 0.013 NT-Pro-B Natriuret Pep Total Protein Albumin Globulin Albumin/Globulin Ratio Triglycerides Cholesterol LDL Cholesterol, Calc HDL Cholesterol Lipase TSH SARS-CoV-2 (PCR) 07/16/21 07/16/21 07/16/21 05:28 05:28 05:28 WBC 5.3 RBC 4.26 L Hgb 11.9 L Hct 36.1 L MCV 84.7 MCH 28.0 MCHC 33.1 RDW 16.7 H Plt Count 206 Neut % (Auto) 61.6 Lymph % (Auto) 20.7 L [place] % (Auto) 12.9 Eos % (Auto) 3.6 Baso % (Auto) 1.2 Neut # (Auto) 3300 Lymph # (Auto) 1100 [place] # (Auto) 700 Eos # (Auto) 200 Baso # (Auto) 100 PT INR APTT D-Dimer Sodium Potassium Chloride Carbon Dioxide BUN Creatinine Estimated GFR BUN/Creatinine Ratio Glucose Hemoglobin A1c Lactate Calcium Magnesium Total Bilirubin 0.6 Conjugated Bilirubin 0.0 Unconjugated Bilirubin 0.7 AST 31 ALT 27 Alkaline Phosphatase 66 Total Creatine Kinase CK-MB (CK-2) CK-MB (CK-2) Rel Index Troponin I 0.012 NT-Pro-B Natriuret Pep Total Protein 6.8 Albumin 4.3 Globulin 2.5 Albumin/Globulin Ratio 1.7 Triglycerides 113 Cholesterol 148 LDL Cholesterol, Calc 76 HDL Cholesterol 49 Lipase TSH SARS-CoV-2 (PCR) 07/16/21 07/16/21 05:28 05:28 WBC RBC Hgb Hct MCV MCH MCHC RDW Plt Count Neut % (Auto) Lymph % (Auto) [place] % (Auto) Eos % (Auto) Baso % (Auto) Neut # (Auto) Lymph # (Auto) [place] # (Auto) Eos # (Auto) Baso # (Auto) PT INR APTT D-Dimer Sodium 142 Potassium 3.7 Chloride 106 Carbon Dioxide 28 BUN 21 H Creatinine 0.88 Estimated GFR > 60.0 BUN/Creatinine Ratio 23.9 H Glucose 126 H Hemoglobin A1c Lactate Calcium 9.2 Magnesium 2.2 Total Bilirubin Conjugated Bilirubin Unconjugated Bilirubin AST ALT Alkaline Phosphatase Total Creatine Kinase CK-MB (CK-2) CK-MB (CK-2) Rel Index Troponin I NT-Pro-B Natriuret Pep Total Protein Albumin Globulin Albumin/Globulin Ratio Triglycerides Cholesterol LDL Cholesterol, Calc HDL Cholesterol Lipase TSH 1.12 SARS-CoV-2 (PCR) [facility] Medical History COVID-19 Hyperlipidemia Hypertension Paroxysmal atrial fibrillation Partial nontraumatic amputation of foot Stroke Type 2 diabetes mellitus Surgical History H/O right inguinal hernia repair H/O shoulder surgery Hx of colonoscopy Presence of Watchman left atrial appendage closure device Family History Sister Heart failure Mother Blood clot in vein Father Myocardial infarction Social History household members: spouse and children Smoking Status: Never smoker alcohol intake: never Discharge Assessment & Plan Assessment and Plan Assessment: 1. Chest pain likely noncardiac 2. Hypertensive urgency 3. Hyperlipidemia 4. Type 2 diabetes 5. GERD 6. History of atrial fibrillation, status post Watchman device, now still on Xarelto Plan of Treatment: Discharge home Follow-up with PCP next week Discharge Plan Discharge Plan Patient Disposition: Home Discharge orders & Medications Prescriptions: New diazepam [Valium] 5 mg tablet 5 mg PO BEDTIME MDD 10 PRN (Reason: anxiety) Qty: 14 0RF amlodipine 10 mg tablet 10 mg PO DAILY Qty: 30 0RF Continued atorvastatin 40 mg Tablet 40 mg PO DAILY 0RF cyclobenzaprine 10 mg Tablet 10 mg PO TID PRN (Reason: back spasm) 0RF venlafaxine 75 mg Capsule,Extended Release 24hr 75 mg PO BID 0RF metoprolol succinate 50 mg Tablet Extended Release 24 Hr 50 mg PO QPM 0RF topiramate 25 mg Tablet 25 mg PO BID 0RF omeprazole 40 mg Capsule,Delayed Release(Dr/Ec) 40 mg PO BID 0RF nortriptyline 25 mg Capsule 25 - 50 mg PO BEDTIME 0RF Lantus Solostar U-100 Insulin 100 unit/mL (3 mL) Insulin Pen 50 unit SUBCUT QPM 0RF Xarelto 20 mg Tablet 20 mg PO DAILY 0RF Rx Instructions: must administer with evening meal potassium chloride 20 mEq Tablet Extended Release 20 meq PO DAILY 0RF Discontinued amlodipine 5 mg Tablet 5 mg PO DAILY 0RF Follow up/Referrals: Kelsey Montoya PA-C [Primary Care Provider] - Discharge Health Status Multidrug resistant organism: No MDRO Diet/Activity/Treatments Diet: Low-sodium and Low-cholesterol Discharge Data Primary Care Provider: Kelsey Montoya Attending Provider: Josie Pichardo VTE Deep Vein Thrombosis/Pulmonary Embolism Present on Admission: No
--- NOTE | 2021-07-16 13:37 | CM.IDA ---
Initial DCP Assessment Note Pt is a 65 yo male, resident of [place], arrives w/ chest pain; w/a cardiac hx, afib, and COVID-19 virus in Nov, now recovered. According to Dr Pichardo, echo and stress test pending today PCP: Kelsey Montoya Payer:RACHEL SHANKS Reviewed chart; patient is indp and active at baseline, off the floor for his stress test. 1400:According to TRISTAN Santiago, results are back from echo and stress test and patient has been cleared for return home, no UTILITY LOCATOR needs identified Plan: DC home w/spouse this afternoon, close outpatient f/u KAYLEN Erazo Discharge Planning/Care Management CM Discharge Assessment Start: 07/16/21 13:26 Freq: Status: Active Protocol: Document 07/16/21 13:27 FRANCISCO J (Rec: 07/16/21 13:37 FRANCISCO J [id number]) Discharge Planning Assessment Assigned Varnish Dipper KAYLNE Zambrano DPOA/Assigned Designee Name Lizzy Bonilla, spouse Contact Information [phone] Advance Directives? No History Provided By Patient,Medical Record Prior Living Arrangements House Household Members spouse,children Type of transporation used prior to Drives own vehicle admit Independent with ADL's Yes Is patient alert and oriented? Yes Barriers to Discharge No Discharge Plan Home Transportation Arrangement Family Referrals Initiated None needed
--- NOTE | 2021-07-16 14:17 | PC.NURSE ---
Assess- Patient is alert and oriented x3, he denies chest pain all shift. Stated that he felt a bit tired, Up with min assist to use the bathroom. Patient is going to discharge home today. His stress test and echo have both been complete.
--- NOTE | 2021-07-16 17:54 | DI.NM.S_ITS ---
DATE OF SERVICE: 07/16/2021 PROCEDURE PERFORMED: Pharmacologic stress and rest myocardial perfusion imaging with gating to assess ejection fraction and regional wall motion. ORDERING PROVIDER: Dr. Josie Pichardo. INDICATIONS: The patient is a 65-year-old male with a history of paroxysmal atrial fibrillation and hypertension, admitted with chest discomfort. PHARMACOLOGIC STRESS: Per protocol, 0.4 mg of regadenoson was infused with a normal hemodynamic response. He had mild dyspnea but no chest discomfort. His resting ECG shows sinus rhythm with relatively normal ST segments and there are no significant ST-segment shifts with stress. There were no arrhythmias and specifically no atrial fibrillation is seen. Per protocol, 27.2 millicuries of technetium-99m Myoview was injected and he was imaged 10 minutes later using a gated SPECT acquisition protocol. Earlier in the day while at rest, he was injected with 12.0 millicuries of technetium-99m Myoview and was imaged 30 minutes later, again using a gated SPECT acquisition protocol. FINDINGS: 1. Raw data: There is fairly good myocardial tracer uptake without any significant motion artifacts. Lung/heart ratio was normal at 0.32 with a normal TID ratio of 1.07. 2. Quantitated gated SPECT: Post-stress ejection fraction is estimated at 74% without any focal wall motion abnormality. The resting ejection fraction is estimated at 62%, although image quality is quite poor and systolic function grossly appears unchanged from the post-stress images. The resting end-diastolic volume is borderline increased at 129 mL. 3. Myocardial perfusion imaging: Post-stress supine images show a fairly normal myocardial perfusion pattern with a mild perfusion defect at the base of the inferior wall consistent with diaphragmatic attenuation, supported by its complete resolution on the prone images which reveal a completely normal perfusion pattern. The resting images show a similar perfusion pattern without any areas of improvement. IMPRESSION: 1. Normal myocardial perfusion study. 2. Mild fixed proximal inferior perfusion defect that resolves on prone imaging, consistent with diaphragmatic attenuation artifact. There is no evidence for significant myocardial ischemia or previous myocardial infarction. 3. Normal left ventricular systolic function with borderline increased left ventricular volumes but no focal wall motion abnormality. 4. No angina or ECG evidence of ischemia with pharmacologic stress and was in sinus rhythm without arrhythmias during his study. Edis Bonilla - Yenny/farzad doc#: [id number]/job#: [id number] dd: 07/16/2021 13:07:00 dt: 07/16/2021 17:42:00 DICTATING MD/COPIES TO: Josep Wallace MD; Josie Pichardo MD COPIES MNE: DEBBIE;
== END 2021-07-16 15:57 | disposition home or self-care (01) ==
LOC: ED 18:30 → AC 18:54
PROVIDERS: Nurse Practitioner Family; Admitting Provider Internal Medicine; Emergency Provider Emergency Medicine; PCP Physician Assistant; Referring Provider Emergency Medicine; Visit Provider Internal Medicine
DX: R07.9 Chest pain, unspecified (principal); R06.02 Shortness of breath; I16.0 Hypertensive urgency; K21.9 Gastro-esophageal reflux disease without esophagitis; E11.9 Type 2 diabetes mellitus without complications; E78.5 Hyperlipidemia, unspecified; I10 Essential (primary) hypertension; E83.42 Hypomagnesemia; I48.0 Paroxysmal atrial fibrillation; Z79.01 Long term (current) use of anticoagulants; Z86.73 Personal history of transient ischemic attack (TIA), and cerebral infarction without residual deficits; Z79.4 Long term (current) use of insulin; Z86.16 Personal history of COVID-19; Z20.822 Contact with and (suspected) exposure to COVID-19
CPT/HCPCS: 36415; 71046; 78452; 80048; 80053; 80061; 80076; 82550; 82553; 82962; 83036; 83605; 83690; 83735; 83880; 84443; 84484; 85025; 85379; 85610; 85730; 87635; 93005; 93010; 93017; 93306; 94762; 96365; 96366; 96375; 96376; 99284; C9803; G0378; A9502; J1815; J1940; J2270; J2785; J3475

== ENCOUNTER 2021-07-18 11:47 | Emergency (ER) | payer MEDICARE, SELFPAY ==
[2021-07-15 19:15] VITALS: BMI 30.3
[2021-07-18] VITALS (8 sets, daily range): BP systolic 146–179; BP diastolic 90–106; PULSE 62–74; RESP 12–20; TEMP 36.4; O2SAT 96–98
--- NOTE | 2021-07-18 12:05 | DI.RAD.S_ITS ---
PROCEDURE: XR CHEST 1V INDICATIONS: chest pain TECHNIQUE: One view of the chest was acquired. COMPARISON: [facility], CR, XR CHEST 2V, 07/15/2021, 15:45. [facility], CR, XR CHEST 1V, 05/22/2021, 20:19. FINDINGS: Surgical changes and devices: None. Lungs and pleura: On this semiupright portable chest examination, no large pneumothorax or large pleural effusions are seen. No focal infiltrates are seen. Low lung volumes are noted. This causes a crowded appearance to the lung markings and limits evaluation. Mediastinum: Mediastinal contours appear normal. Heart size is mildly enlarged. Bones and chest wall: No suspicious bony lesions. Age-appropriate bony degenerative changes are seen. Overlying soft tissues appear unremarkable. IMPRESSION: Mild cardiomegaly. Low lung volumes, without a focal pulmonary abnormality. Dictated by: Lamin Wallace M.D. on 07/18/2021 at 11:33 Approved by: Lamin Wallace M.D. on 07/18/2021 at 11:34
[2021-07-18 12:18] LABS: Add Manual Diff / Slide Review NO; Basophils Absolute Auto 100 /uL (0-100); Basophils Percent Auto 1.5 % (0-2); Eosinophils Absolute Auto 200 /uL (0-450); Eosinophils Percent Auto 3.6 % (2-4); Hematocrit 39.2 % (41-53); Hemoglobin 12.8 g/dL (13.5-17.5); Lymphocytes Absolute Auto 1400 /uL (1100-4500); Lymphocytes Percent Auto 24.1 % (25-40); Mean Corpuscular HGB Conc 32.8 % (30-36); Mean Corpuscular Hemoglobin 28.1 PG (26-34); Mean Corpuscular Volume 85.8 fL (80-100); Monocytes Absolute Auto 600 /uL (0-900); Monocytes Percent Auto 10.4 % (3-14); Neutrophils Absolute Auto 3500 /uL (1500-7000); Neutrophils Percent Auto 60.4 % (50-75); Platelet Count 235 X10^3/uL (150-400); Red Blood Cell Count 4.56 X10^6/uL (4.5-5.9); Red Cell Distribution Width 16.3 % (11.6-14.8); White Blood Cell Count 5.9 X10^3/uL (4.5-11.0)
[2021-07-18 12:28] LABS: Alanine Aminotransferase 27 IU/L (<50); Albumin 4.8 g/dL (3.5-5.0); Albumin Globulin Ratio 1.7 (1.0-2.8); Alkaline Phosphatase 80 U/L (38-126); Aspartate Aminotransferase 30 IU/L (17-59); BUN Creatinine Ratio 22.9 (6-22); Bilirubin Total 0.7 mg/dL (0.2-1.3); Blood Urea Nitrogen 19 mg/dL (9-20); Calcium 9.2 mg/dL (8.4-10.2); Carbon Dioxide 22 mmol/L (22-32); Chloride 109 mmol/L (98-107); Creatine Kinase 180 U/L (55-170); Estimated Glomerular Filt Rate > 60.0 mL/min (>60); Globulin 2.9 g/dL (1.7-4.1); Glucose 148 mg/dL (80-110); HEMOLYSIS < 15 (0-50); Lipase 47 U/L (23-300); Magnesium 1.8 mg/dL (1.6-2.3); Sodium 140 mmol/L (137-145); Total Protein 7.7 g/dL (6.3-8.2)
[2021-07-18 12:40] LABS: Troponin I < 0.012 ng/mL (0.01-0.034)
[2021-07-18 12:43] LABS: CKMB % Relative Index 0.9 % (1.5-5.0); Creatine Kinase MB 1.56 ng/mL (<2.37)
--- NOTE | 2021-07-18 13:50 | ED_ITS ---
HPI - Chest Pain <Wilda Manzanares [facility] - Last Filed: 07/18/21 14:05> General Chief Complaint: Chest Pain Stated Complaint: Blood pressure high Time Seen by Provider: 07/18/21 13:04 Source: patient Mode of arrival: Family Vehicle Limitations: no limitations History of Present Illness HPI narrative: 65-year-old male presents to the emergency department with complaint of transient dizziness and chest pain which occurred this morning when he was getting out of bed and when he was walking. Patient describes his chest pain is reproducible when he takes a deep breath and also when pressing on his epigastrium. ? He has felt a little bit lightheaded for the past couple hours.? No syncope.? He had bilateral swelling in his lower extremities on the but none today. He states he was given Lasix in the emergency department that. He previously had his 10 toes amputated related to diabetes but currently does not have any signs of infection or local edema as he did previously on his visit. Patient notes that he has medical problems he does not know what they all are he does have diabetic and is on insulin.? Had a Watchman placed in OR on March 01.? Patient states he used to see a shaper operator in your but does not established locally.? He has established primary care with Kelsey Hughes at the [facility]. He was recently seen in the emergency department on July 15, 2021 and followed up with a stress test. No known drug allergies.? No tobacco, alcohol or illicit.? He states his blood pressures have been high which he states is 170/104 but he recently started taking his amlodipine after he established care with Kelsey Hughes and they have been better overall. They came to the emergency department because he was concerned about his dizziness. He states he has not had anything to eat or drink today, because he has been careful about how much fluid he has been drinking. Patient denies dizziness while lying down, he does endorse epigastric pain and poor appetite. Related Data Home Medications Medication Instructions Recorded Confirmed atorvastatin 40 mg tablet 40 mg PO DAILY 05/22/21 07/15/21 cyclobenzaprine 10 mg tablet 10 mg PO TID PRN 05/22/21 07/15/21 insulin glargine 100 unit/mL (3 50 unit SUBCUT QPM 11/20/21 01/13/22 mL) subcutaneous pen (Lantus Solostar U-100 Insulin) metoprolol succinate 50 mg 50 mg PO QPM 05/22/21 07/15/21 tablet,extended release 24 hr nortriptyline 25 mg capsule 25 - 50 mg PO BEDTIME 05/22/21 07/15/21 omeprazole 40 mg capsule,delayed 40 mg PO BID 05/22/21 07/15/21 release potassium chloride 20 mEq 20 meq PO DAILY 05/22/21 07/15/21 tablet,extended release rivaroxaban 20 mg tablet (Xarelto) 20 mg PO DAILY 05/22/21 07/15/21 topiramate 25 mg tablet 25 mg PO BID 05/22/21 07/15/21 venlafaxine 75 mg capsule,extended 75 mg PO BID 05/22/21 07/15/21 release 24 hr Previous Rx's Medication Instructions Recorded amlodipine 10 mg tablet 10 mg PO DAILY #30 tab 07/16/21 diazepam 5 mg tablet (Valium) 5 mg PO BEDTIME PRN #14 tab MDD 10 07/16/21 Allergies Allergy/AdvReac Type Severity Reaction Status Date / Time No Known Drug Allergies Allergy Verified 07/15/21 15:37 Review of Systems <ZACKARY Dejesus - Last Filed: 07/18/21 14:05> Review of Systems Narrative: General: denies fever, chills, malaise, sweats, fatigue Head/Neck: denies headache, neck pain, endorses dizziness with position changes, standing from sitting or lying Eyes: denies visual changes, eye pain Cardio: Endorses chest pain which is reproducible with deep breath and pressure on his epigastrium, denies palpitations, edema Respiratory: denies dyspnea, cough, orthopnea GI: denies abdominal pain, nausea, vomiting, or diarrhea : denies dysuria, hematuria, urinary retention, frequency or incontinence MSK: denies joint pain, muscle weakness Skin: denies rash, itching, skin lesions or other Neuro: denies numbness, tingling Patient History <ZACKARY Dejesus - Last Filed: 07/18/21 14:05> Medical History COVID-19 Hyperlipidemia Hypertension Paroxysmal atrial fibrillation Partial nontraumatic amputation of foot Stroke Type 2 diabetes mellitus Surgical History H/O right inguinal hernia repair H/O shoulder surgery Hx of colonoscopy Presence of Watchman left atrial appendage closure device Family History Sister Heart failure Mother Blood clot in vein Father Myocardial infarction Social History household members: spouse and children Smoking Status: Never smoker alcohol intake: never Smoking Status: Never smoker alcohol intake frequency: 0-2 drinks per day Substance Use Type: does not use Exam <ZACKARY Dejesus - Last Filed: 07/18/21 14:05> Narrative Exam Narrative: Independently reviewed vitals signs and nursing notes. General: Awake, alert, well-nourished and developed, nontoxic, no cardiorespiratory distress Head/Neck: Atraumatic, neck full range of motion, trachea midline, no JVD or lymphadenopathy. Supple, nontender, no meningeal signs. Eyes: Pupils equal round and reactive, EOMI, conjunctiva normal, no scleral icterus or injections Nose: nares patent, no rhinorrhea, without purulent drainage or septal hematoma. Mouth/Throat: uvula midline, moist mucus membranes, posterior pharynx normal, no oral lesions, airway patent Cardio: Regular rate and rhythm, no peripheral edema, cardiac device present, no auscultated murmurs rubs or gallops Respiratory: respirations unlabored without wheezing, stridor, or rales. No retractions. GI: Abdomen soft, nontender, nondistended, no hepato-spenomegaly, when palpating over the epigastrium, patient jumps and reports that he is tender there, also endorses poor appetite since coming off of his omeprazole MSK: Moves all extremities, neurovascularly intact, no flank tenderness Skin: Normal capillary refill, no rash Neuro: Normal speech and cognition, normal gait, A&O x3 Initial Vital Signs Initial Vital Signs: Vital Signs Temperature 97.5 F L 07/18/21 12:05 Pulse Rate 74 07/18/21 12:05 Respiratory Rate 19 07/18/21 12:05 Blood Pressure 179/90 H 07/18/21 12:05 Pulse Oximetry 98 07/18/21 12:05 <Nina Win DO - Last Filed: 07/18/21 14:46> Initial Vital Signs Initial Vital Signs: Vital Signs Temperature 97.5 F L 07/18/21 12:05 Pulse Rate 74 07/18/21 12:05 Respiratory Rate 19 07/18/21 12:05 Blood Pressure 179/90 H 07/18/21 12:05 Pulse Oximetry 98 07/18/21 12:05 Scores <ZACKARY Dejesus - Last Filed: 07/18/21 14:05> Eva Criteria for PE Clinical signs and symptoms of DVT: No PE is #1 Dx or equally likely: No Heart rate > 100: No Immobilization at least 3 days or surg in previous 4 weeks: No History of PE or DVT: No Hemoptysis: No Malignancy w/Treatment within 6 months or palliative: No Wells' PE Score total: 0 <Nina Win DO - Last Filed: 07/18/21 14:46> Wells' Criteria for PE Wells' PE Score total: 0 Course <ZACKARY Dejesus - Last Filed: 07/18/21 14:05> Orders Ordered: ED Orders 07/18/21 12:02 EKG-12 Lead Stat 07/18/21 12:05 XR chest 1V Stat 07/18/21 12:07 Complete Blood Count AUTO DIFF Stat Comprehensive Metabolic Panel Stat Lipase Stat Magnesium Stat Troponin & CK Cardiac Panel Stat Discontinued Medications Famotidine (Famotidine 20 Mg Tablet) 20 mg PO NOW ONE Stop: 07/18/21 13:41 Last Admin: 07/18/21 13:56 Dose: 20 mg Documented by: LORNE Vital Signs Vital signs: Vital Signs - 8 hr 07/18/21 12:05 07/18/21 13:15 07/18/21 13:16 Temperature 97.5 F L Pulse Rate 74 71 Respiratory Rate 19 12 Blood Pressure 179/90 H 161/106 H Pulse Oximetry 98 97 07/18/21 13:30 07/18/21 13:45 07/18/21 14:00 Temperature Pulse Rate 68 62 68 Respiratory Rate 20 14 15 Blood Pressure 153/98 H 148/96 H Pulse Oximetry 98 96 97 07/18/21 14:01 07/18/21 14:02 Temperature Pulse Rate 67 65 Respiratory Rate 16 19 Blood Pressure 146/97 H Pulse Oximetry 97 <Nina Win DO - Last Filed: 07/18/21 14:46> Orders Ordered: ED Orders 07/18/21 12:02 EKG-12 Lead Stat 07/18/21 12:05 XR chest 1V Stat 07/18/21 12:07 Complete Blood Count AUTO DIFF Stat Comprehensive Metabolic Panel Stat Lipase Stat Magnesium Stat Troponin & CK Cardiac Panel Stat Discontinued Medications Famotidine (Famotidine 20 Mg Tablet) 20 mg PO NOW ONE Stop: 07/18/21 13:41 Last Admin: 07/18/21 13:56 Dose: 20 mg Documented by: LORNE Vital Signs Vital signs: Vital Signs - 8 hr 07/18/21 12:05 07/18/21 13:15 07/18/21 13:16 Temperature 97.5 F L Pulse Rate 74 71 Respiratory Rate 19 12 Blood Pressure 179/90 H 161/106 H Pulse Oximetry 98 97 07/18/21 13:30 07/18/21 13:45 07/18/21 14:00 Temperature Pulse Rate 68 62 68 Respiratory Rate 20 14 15 Blood Pressure 153/98 H 148/96 H Pulse Oximetry 98 96 97 07/18/21 14:01 07/18/21 14:02 Temperature Pulse Rate 67 65 Respiratory Rate 16 19 Blood Pressure 146/97 H Pulse Oximetry 97 MDM - Chest Pain <ZACKARY Dejesus - Last Filed: 07/18/21 14:05> Lab Data Result diagrams: 07/18/21 12:07 07/18/21 12:07 Labs: Lab Results 07/18/21 07/18/21 Range/Units 12:07 12:07 WBC 5.9 (4.5-11.0) X10^3/uL RBC 4.56 (4.5-5.9) X10^6/uL Hgb 12.8 L (13.5-17.5) g/dL Hct 39.2 L (41-53) % MCV 85.8 (80-100) fL MCH 28.1 (26-34) PG MCHC 32.8 (30-36) % RDW 16.3 H (11.6-14.8) % Plt Count 235 (150-400) X10^3/uL Neut % (Auto) 60.4 (50-75) % Lymph % (Auto) 24.1 L (25-40) % [place] % (Auto) 10.4 (3-14) % Eos % (Auto) 3.6 (2-4) % Baso % (Auto) 1.5 (0-2) % Neut # (Auto) 3500 (6265-0190) /uL Lymph # (Auto) 1400 (5861-3869) /uL [place] # (Auto) 600 (0-900) /uL Eos # (Auto) 200 (0-450) /uL Baso # (Auto) 100 (0-100) /uL Sodium 140 (137-145) mmol/L Potassium 4.0 (3.4-5.1) mmol/L Chloride 109 H (98-107) mmol/L Carbon Dioxide 22 (22-32) mmol/L BUN 19 (9-20) mg/dL Creatinine 0.83 (0.66-1.25) mg/dL Estimated GFR > 60.0 (>60) mL/min BUN/Creatinine Ratio 22.9 H (6-22) Glucose 148 H (80-110) mg/dL Calcium 9.2 (8.4-10.2) mg/dL Magnesium 1.8 (1.6-2.3) mg/dL Total Bilirubin 0.7 (0.2-1.3) mg/dL AST 30 (17-59) IU/L ALT 27 (<50) IU/L Alkaline Phosphatase 80 (38-126) U/L Total Creatine Kinase 180 H (55-170) U/L CK-MB (CK-2) 1.56 (<2.37) ng/mL CK-MB (CK-2) Rel Index 0.9 L (1.5-5.0) % Troponin I < 0.012 (0.01-0.034) ng/mL Total Protein 7.7 (6.3-8.2) g/dL Albumin 4.8 (3.5-5.0) g/dL Globulin 2.9 (1.7-4.1) g/dL Albumin/Globulin Ratio 1.7 (1.0-2.8) Lipase 47 (23-300) U/L Imaging Data Chest x-ray: Radiologist's Impression: PROCEDURE:? XR CHEST 1V ? INDICATIONS:? chest pain ? TECHNIQUE:? One view of the chest was acquired.? ? COMPARISON:? [facility], CR, XR CHEST 2V, 07/15/2021, 15:45.? [facility], CR, XR CHEST 1V, 05/22/2021, 20:19. ? FINDINGS:? ? Surgical changes and devices:? None.? ? Lungs and pleura:? On this semiupright portable chest examination, no large pneumothorax or large pleural effusions are seen.? No focal infiltrates are seen.? Low lung volumes are noted. This causes a crowded appearance to the lung markings and limits evaluation.? ? Mediastinum:? Mediastinal contours appear normal.? Heart size is mildly enlarged.? ? Bones and chest wall:? No suspicious bony lesions.? Age-appropriate bony degener ative changes are seen.? Overlying soft tissues appear unremarkable.? ? ? IMPRESSION:? Mild cardiomegaly. ? Low lung volumes, without a focal pulmonary abnormality. ? ? Dictated by: Lamin Wallace M.D. on 07/18/2021 at 11:33 ? ? Approved by: Lamin Wallace M.D. on 07/18/2021 at 11:34 ? ECG Data Interpretation: EKG independently reviewed by Dr. Campos and myself reveals normal sinus rhythm at [69] bpm with regular axis and intervals. No STEMI, ST segment changes, arrhythmia, or acute ischemic changes. SC interval 0.16, QRS 0.94, QTC 0.44, normal axis MDM Narrative Medical decision making narrative: 65-year-old male presents to the emergency department complaining of orthostatic chest pain and dizziness from lying to standing and from sitting to standing and walking which occurred this morning. He also endorses epigastric pain with pressure and chest pain with deep inspiration. He had COVID in May, previous workup for chest pain on July 15, test completed by Dr. Chand on July 16 with a normal myocardial perfusion study, no angina or evidence of ischemia with pharmacologic stress, patient was in sinus rhythm with no arrhythmias. He also had an echocardiogram EF of 55-60%. He had [id number] RA enlargement without valvular abnormalities. Patient did not have any signs of acute ischemia on his EKGs 2 hours apart, cardiac enzymes were negative for elevation, his epigastric pain is reproducible with palpation, of note he has not been taking his omeprazole since restarting his amlodipine and he has not had an appetite since this and complains of GERD symptoms currently. He has no edema on exam and no appreciable orthopnea. There does not appear to be any acute or dangerous signs for his symptoms today. I suspect patient is slightly dehydrated as he has not had anything to eat or drink today. I encouraged him to start taking his omeprazole in the morning and his amlodipine at night to allow plenty of time in between the 2 medications for absorption. I recommend he follow-up with his primary care provider Chanel hughes and [facility]. Multiple causes of chest pain consid ered including MT, PE, pneumothorax, pneumonia, aortic dissection, and pleurisy. Patient reports no radiation, no diaphoresis, no provocation with exertion, and no vomiting. Patient is appropriate and amenable to discharge home. Vital signs are stable on repeat examination is unremarkable. Patient has been informed of results. Patient has been given strict return to ER precautions for any new or worsening symptoms. Patient understands to follow up closely with outpatient providers as instructed. Patient understands plan and agrees to discharge home. All questions and concerns answered at this time. <Nina Win, DO - Last Filed: 07/18/21 14:46> Lab Data Labs: Lab Results 07/18/21 07/18/21 Range/Units 12:07 12:07 WBC 5.9 (4.5-11.0) X10^3/uL RBC 4.56 (4.5-5.9) X10^6/uL Hgb 12.8 L (13.5-17.5) g/dL Hct 39.2 L (41-53) % MCV 85.8 (80-100) fL MCH 28.1 (26-34) PG MCHC 32.8 (30-36) % RDW 16.3 H (11.6-14.8) % Plt Count 235 (150-400) X10^3/uL Neut % (Auto) 60.4 (50-75) % Lymph % (Auto) 24.1 L (25-40) % [place] % (Auto) 10.4 (3-14) % Eos % (Auto) 3.6 (2-4) % Baso % (Auto) 1.5 (0-2) % Neut # (Auto) 3500 (0747-2105) /uL Lymph # (Auto) 1400 (1903-1384) /uL [place] # (Auto) 600 (0-900) /uL Eos # (Auto) 200 (0-450) /uL Baso # (Auto) 100 (0-100) /uL Sodium 140 (137-145) mmol/L Potassium 4.0 (3.4-5.1) mmol/L Chloride 109 H (98-107) mmol/L Carbon Dioxide 22 (22-32) mmol/L BUN 19 (9-20) mg/dL Creatinine 0.83 (0.66-1.25) mg/dL Estimated GFR > 60.0 (>60) mL/min BUN/Creatinine Ratio 22.9 H (6-22) Glucose 148 H (80-110) mg/dL Calcium 9.2 (8.4-10.2) mg/dL Magnesium 1.8 (1.6-2.3) mg/dL Total Bilirubin 0.7 (0.2-1.3) mg/dL AST 30 (17-59) IU/L ALT 27 (<50) IU/L Alkaline Phosphatase 80 (38-126) U/L Total Creatine Kinase 180 H (55-170) U/L CK-MB (CK-2) 1.56 (<2.37) ng/mL CK-MB (CK-2) Rel Index 0.9 L (1.5-5.0) % Troponin I < 0.012 (0.01-0.034) ng/mL Total Protein 7.7 (6.3-8.2) g/dL Albumin 4.8 (3.5-5.0) g/dL Globulin 2.9 (1.7-4.1) g/dL Albumin/Globulin Ratio 1.7 (1.0-2.8) Lipase 47 (23-300) U/L ECG Data Interpretation: EKG independently reviewed by Dr. Win and myself reveals normal sinus rhythm at [69] bpm with regular axis and intervals. No STEMI, ST segment changes, arrhythmia, or acute ischemic changes. SC interval 0.16, QRS 0.94, QTC 0.44, normal axis EKG shows sinus rhythm, rate of 69, P are 160, QRS of 94 QTC 44. No acute ST changes appreciated. EKG appears similar to prior from 07/15/2021. Discharge Plan Departure Patient Disposition: Home Clinical Impression: Chest pain, Hypertension Instructions: DI for Atypical Chest Pain Activity Restrictions/Additional Instructions: *You have been diagnosed with chest pain which does not appear to the cardiac in nature, and hypertension which appears controlled. Please start taking your omeprazole 40 mg in the morning instead of 40 mg morning and night. Please allow your nighttime medication to include amlodipine without omeprazole as they were not compatible. Please follow-up with [facility], you has seen 2 of the providers in her system already Dr. Dietrich and Dr. Wallace. They have a clinic in and a [place] at the phone number attached. After this please follow-up with Chanel, as she will be your primary care provider in the meantime. Today it does not appear that there is any life-threatening causes to your symptoms, I suspect that you are on the dry side, and could use some hydration. Please remember to eat healthy meals low in sodium, continue to drink at least 8 glasses of water, and try to continue to stay active. Your EKGs are reassuring that there is not any active stress on your heart. Your lab work reflected the same story so this is most likely orthostatic dizziness related to being dehydrated. Please call the clinic on Monday and schedule a follow-up appointment from this emergency department visit. *What to do: *Please continue to take your regular medications as directed. [ ] New medication prescriptions sent to your pharmacy: [ ] [ ] New medication written as a paper prescription [x ] No new medications given *Please follow up with your primary care provider in 2-3 days, call for an appointment. Let them know you were seen in the Emergency Department and that we ask that you be seen in follow up. We will electronically transmit a record of today's note if your PCP is in our system *If you do not have a primary care provider please contact the [facility] Resource line at [phone]. They will ask some questions about your medical history and help get you set up with a doctor in the community. *Return to Emergency Department if you should have any new, worsening or concerning symptoms, such as [fever greater than 101F, chills, worsening pain, persistent vomiting or other bothersome symptoms] Prescriptions: No Action atorvastatin 40 mg Tablet 40 mg PO DAILY 0RF cyclobenzaprine 10 mg Tablet 10 mg PO TID PRN (Reason: back spasm) 0RF venlafaxine 75 mg Capsule,Extended Release 24hr 75 mg PO BID 0RF metoprolol succinate 50 mg Tablet Extended Release 24 Hr 50 mg PO QPM 0RF topiramate 25 mg Tablet 25 mg PO BID 0RF omeprazole 40 mg Capsule,Delayed Release(Dr/Ec) 40 mg PO BID 0RF nortriptyline 25 mg Capsule 25 - 50 mg PO BEDTIME 0RF Lantus Solostar U-100 Insulin 100 unit/mL (3 mL) Insulin Pen 50 unit SUBCUT QPM 0RF Xarelto 20 mg Tablet 20 mg PO DAILY 0RF Rx Instructions: must administer with evening meal potassium chloride 20 mEq Tablet Extended Release 20 meq PO DAILY 0RF amlodipine 10 mg tablet 10 mg PO DAILY Qty: 30 0RF diazepam [Valium] 5 mg tablet 5 mg PO BEDTIME MDD 10 PRN (Reason: anxiety) Qty: 14 0RF Referrals: Kelsey Hughes PA-C [Primary Care Provider] - Weston Baer MD [Physician] - 5-7 days (please follow up with [facility] cardiology. [place]: [phone]) <Nina Win DO - Last Filed: 07/18/21 14:46> Cosign ED Attending Naomie Attestation: I was immediately available in the department for consultation. Documentation has been reviewed. Case discussed. Agree with plan.
[2021-07-18] MEDS: FAMOTIDINE 20 MG TABLET PO (13:56)
== END 2021-07-18 14:05 | disposition home or self-care (01) ==
PROVIDERS: Emergency Medicine; Emergency Provider Nurse Practitioner Critical Care Medicine; PCP Physician Assistant
DX: R07.9 Chest pain, unspecified (principal); I10 Essential (primary) hypertension
CPT/HCPCS: 36415; 71045; 80053; 82550; 82553; 83690; 83735; 84484; 85025; 93005; 93010; 99284; A9270

== ENCOUNTER → 2021-08-13 09:32 | Outpatient (CLI) | payer MEDICARE, SELFPAY ==
[2021-07-15 19:15] VITALS: BMI 30.3
[2021-08-13 10:05] LABS: Add Manual Diff / Slide Review NO; Basophils Absolute Auto 100 /uL (0-100); Basophils Percent Auto 1.8 % (0-2); Eosinophils Absolute Auto 200 /uL (0-450); Eosinophils Percent Auto 3.8 % (2-4); Hematocrit 39.1 % (41-53); Hemoglobin 12.9 g/dL (13.5-17.5); Lymphocytes Absolute Auto 1700 /uL (1100-4500); Lymphocytes Percent Auto 29.2 % (25-40); Mean Corpuscular Hemoglobin 28.2 PG (26-34); Mean Corpuscular Volume 85.3 fL (80-100); Monocytes Absolute Auto 700 /uL (0-900); Monocytes Percent Auto 11.2 % (3-14); Neutrophils Absolute Auto 3100 /uL (1500-7000); Platelet Count 200 X10^3/uL (150-400); Red Blood Cell Count 4.58 X10^6/uL (4.5-5.9); Red Cell Distribution Width 16.5 % (11.6-14.8); White Blood Cell Count 5.8 X10^3/uL (4.5-11.0)
[2021-08-13 10:23] LABS: Alanine Aminotransferase 24 IU/L (<50); Albumin 4.5 g/dL (3.5-5.0); Albumin Globulin Ratio 2.1 (1.0-2.8); Alkaline Phosphatase 72 U/L (38-126); Aspartate Aminotransferase 24 IU/L (17-59); BUN Creatinine Ratio 16.8 (6-22); Bilirubin Total 0.8 mg/dL (0.2-1.3); Blood Urea Nitrogen 17 mg/dL (9-20); Calcium 9.1 mg/dL (8.4-10.2); Carbon Dioxide 27 mmol/L (22-32); Chloride 107 mmol/L (98-107); Estimated Glomerular Filt Rate > 60.0 mL/min (>60); Globulin 2.1 g/dL (1.7-4.1); Glucose 91 mg/dL (80-110); HEMOLYSIS < 15 (0-50); Potassium 3.2 mmol/L (3.4-5.1); Sodium 143 mmol/L (137-145); Total Protein 6.6 g/dL (6.3-8.2)
== END ==
PROVIDERS: PCP Physician Assistant; Referring Provider Physician Assistant; Visit Provider Physician Assistant
DX: I25.10 Atherosclerotic heart disease of native coronary artery without angina pectoris (principal); I10 Essential (primary) hypertension
CPT/HCPCS: 36415; 80053; 85025

== ENCOUNTER → 2021-08-30 11:56 | Outpatient (CLI) | payer MEDICARE, SELFPAY ==
[2021-07-15 19:15] VITALS: BMI 30.3
[2021-08-30 13:48] LABS: Blood Urea Nitrogen 21 mg/dL (9-20); Calcium 9.1 mg/dL (8.4-10.2); Carbon Dioxide 22 mmol/L (22-32); Chloride 109 mmol/L (98-107); Estimated Glomerular Filt Rate > 60.0 mL/min (>60); Glucose 96 mg/dL (80-110); HEMOLYSIS < 15 (0-50); Potassium 3.7 mmol/L (3.4-5.1); Sodium 140 mmol/L (137-145)
== END ==
PROVIDERS: PCP Physician Assistant; Referring Provider Physician Assistant; Visit Provider Physician Assistant
DX: I10 Essential (primary) hypertension (principal)
CPT/HCPCS: 36415; 80048